=== PATIENT | female | born 1940 | race Caucasian/White ===

== ENCOUNTER 2016-09-19 12:18 | Inpatient (IN) ==
[2016-09-19] MEDS ORDERED: HYDROmorphone 2 MG/1 ML VIAL IV STA (13:22)
[2016-09-19] MEDS ORDERED: ONDANSETRON 4 MG/2 ML VIAL IV STA (13:22)
--- NOTE | 2016-09-19 13:37 | Emergency Department Note ---
Miguel Salgado Gwan, am scribing for, and in the presence of, Aristeo Potter MD 13:27 . Abbey Salgado James D, MD, personally performed the services described in this documentation, ascribed by Jun Rivera in my presence, and it is both accurate and complete 336 . Arrival - Arrival Chief Complaint: Extremity Problem Stated Complaint: leg pain,black toes,has stents ED Nursing Triage Note: PT C/O PAIN TO BLE AND DISCOLORATION TO TOES. PT SENT HERE BY DR SANDERS. Mode of Arrival: Wheelchair Limitations: No Limitations Source: Patient, Family (Daughter), Old Records Reviewed, RN Notes Reviewed - History of Present Illness HPI Narrative: Pt is a 76 y/o female who presents to the ED with bilateral lower extremity discoloration. Patient continued to note that she was sent to ED by Dr. Sanders for further evaluation. Patient confirmed that in March 24, 2016 she had 5 stents put in and that she has cramps in BLE with walking and sitting. Pt is followed by Dr. Staley. Daughter confirmed that her problems with BLE began when she had toe nail removed. Patient confirmed that she use to smoke 1ppd cigarettes and that she had a CAT Scan that resulted in 100% blockage in her right leg. Pt has a PMHx of HTN, cerebrovascular accident, NIDDM, cardiac dysrhythmia and dyslipidemia. No other problems/complaints reported in ED. Onset (ago): day(s) Consistency: constant Severity: moderate Allergies/Adverse Reactions: Allergies Allergy/AdvReac Type Severity Reaction Status Date / Time codeine AdvReac Nausea Verified 09/19/16 12:35 sulfabenzamide AdvReac Nausea Verified 09/19/16 12:35 Home Medications: Home Medications Medication Instructions Recorded Confirmed Type Apixaban [Eliquis] 5 mg PO BID 09/19/16 09/19/16 History Atorvastatin [Lipitor] 20 mg PO DAILY 09/19/16 09/19/16 History Cilostazol 100 mg PO BID 09/19/16 09/19/16 History Diltiazem Cd Cap [Cardizem CD] 120 mg PO DAILY 09/19/16 09/19/16 History Escitalopram [Lexapro] 20 mg PO DAILY 09/19/16 09/19/16 History Liraglutide [Victoza 2-Earl] 1.2 ml SUBCUT DAILY 09/19/16 09/19/16 History Lisinopril/Hydrochlorothiazide 1 each PO BID 09/19/16 09/19/16 History [Lisinopril-Hctz 20-12.5 mg Tab] Metformin HCl 1,000 mg PO BID 09/19/16 09/19/16 History glipiZIDE [Glipizide] 10 mg PO BID 09/19/16 09/19/16 History Review of System - Review of System 12 point system: reviewed and no additional remarkable complaints except as stated - Review of System Constitutional: Absent: chills, fever Head/Ears/Nose/Throat: Absent: earache Respiratory: Absent: cough Cardiovascular: Absent: chest pain Musculoskeletal: Present: as per HPI, other (both feet/toes are discolored) Skin: Present: as per HPI, change in color (both feet/toes). Absent: rash, lesions Medical,Surgical,& Family Hx - Medical History Cardio: History of: Cardiac Dysrhythmia (A-FIB), Hypertension, Cardiovascular Problems (MULTIPLE STENTS TO BLE) Neurology: History of: Cerebrovascular Accident Endocrine: History of: Diabetes Mellitus (NIDDM), Dyslipidemia - Social History Smoking Status: Smoker, status unknown Frequency of Alcohol Use: None Type of Drug Use: None Exam Physical Examination: GENERAL: This is a white female in no apparent distress. VITAL SIGNS: HEENT: Head is normocephalic and atraumatic. Pupils are equally round and reactive to light. Extraocular movement are intact. Oropharynx is benign with moist mucous membranes. NECK: Neck is soft and supple without tenderness. There are no masses. There is no lymphadenopathy. LUNGS: Lungs are clear to auscultation bilaterally. Chest rises symmetrically. There is no chest wall tenderness. CV: Heart is regular rate and rhythm without murmurs, rubs, or gallops. ABDOMEN: Abdomen is soft, non-tender to palpation. There are no abnormal masses palpated. There is no organomegaly. Bowel sounds are present and active. SKIN: Skin is warm and dry. No rash. EXTREMITIES: Left leg is cool to touch and discolored especially overlying the left great toe. Patient does have motor function in the left lower extremity and has sensation to light touch. She has no pulses in the dorsalis pedis posterior tibial popliteal or femoral arteries on the left. She does have a 2+ right femoral artery pulse.. NEUROLOGIC: Awake, alert, and oriented x4. No pulse in femoral artery of left leg. PSYCHIATRIC: Normal affect. Normal mood. Vital Signs: Vital Signs Temperature 100.1 F H 09/19/16 12:30 Pulse Rate 67 09/19/16 12:30 Respiratory Rate 16 09/19/16 12:30 Blood Pressure 120/53 09/19/16 12:30 O2 Sat by Pulse Oximetry 97 09/19/16 12:30 Course - Consultations Consultation #1: Discussed with Dr. Sanders. He will see the patient in the emergency department. Time: 16:01 Results - Labs CBC & BMP: 09/19/16 13:53 09/19/16 13:53 Lab Results: I have reviewed the patients labs - Diagnostic Findings Procedure: CT: image reviewed by me (CT angiogram of aorta with runoff: Newly occluded left iliac artery stent.) Disposition Clinical Impression: Peripheral artery disease, Newly occluded left iliac artery stent Case discussed with: patient Disposition: Still a Patient Condition: Guarded Time of Disposition: 16:01
[2016-09-19 14:00] LABS: Basophils % 0.5 % (0.0-0.8); Eosinophils # 0.1 10*3/uL (0.0-0.87); Eosinophils % 1.1 % (0.00-10.9); Hematocrit 39.1 VOL% (35.7-47.0); Hemoglobin 13.1 GM/DL (12.0-16.0); Immature Granulocytes % 0.2 %; Immature Granulocytes Absolute 0.02 #; Lymphocytes # 2.3 10*3/uL (1.4-4.0); Lymphocytes % 27.1 % (21.3-54.2); Mean Corpuscular HGB Conc 33.5 GM/DL (32-36); Mean Corpuscular Hemoglobin 32 PG (27-34); Mean Corpuscular Volume 94.7 FL (87-102); Mean Platelet Volume 10.4 FL (9.6-12.0); Monocytes # 0.4 10*3/uL (0.11-0.8); Monocytes % 4.9 % (1.7-12.7); Neutrophils # 5.6 10*3/uL (1.4-7.4); Neutrophils % 66.2 % (38.7-73.9); Platelet Count 179 T/CUMM (130-400); Red Blood Count 4.13 MC/CUMM (3.8-5.5); Red Cell Distribution Width 12.5 % (9.3-17.3); White Blood Count 8.5 T/CUMM (4-12)
[2016-09-19] MEDS ORDERED: HYDROmorphone 2 MG/1 ML VIAL ONE (14:01)
[2016-09-19] MEDS ORDERED: ONDANSETRON 4 MG/2 ML VIAL ONE (14:01)
[2016-09-19 14:09] LABS: INR 0.9; PT Patient Result 9.9 SECS; Partial Thromboplastin Time 24.5 SECS (0-40)
--- NOTE | 2016-09-19 14:25 | EKG Report ---
Stationary ECG Study [facility] ER Test Date: 09/19/2016 2:23:47 PM Pat Name: MAKAYLA GONZALEZ Department: Room: Gender: F Supervisor Graphite: : 1940 Requested by: Aristeo Carroll Order Number: [id number] Reading MD: SAYRA COLLINS Intervals [place] Rate: 63 P: 82 IA: 166 QRS: 71 QRSD: 84 T: 71 QT: 424 QTc: 432 Interpretive Statements SINUS RHYTHM LEFT VENTRICULAR HYPERTROPHY AND ST-T CHANGE Electronically Signed On 09-19-16 17:15:08 CDT by SAYRA COLLINS [email or web address]
[2016-09-19 14:32] LABS: Alanine Aminotransferase 16 U/L (13-56); Albumin 3.5 G/DL (3.4-5.0); Alkaline Phosphatase 87 U/L (45-117); Aspartate Amino Transferase 8 U/L (0-37); Bilirubin,Total < 0.39 MG/DL (0.2-1.0); Blood Urea Nitrogen 24 MG/DL (7-18); Calcium 8.6 MG/DL (8.5-10.1); Glucose 413 MG/DL (74-106); Osmolality,Calculated 290.1 MOS/KG (273-304); Sodium 135 MMOL/L (136-145); Total Protein 6.4 G/DL (6.4-8.3)
--- NOTE | 2016-09-19 15:29 | CT Report ---
CT angio abdomen/femoral Indication: Cold, pulseless left lower extremity CT ANGIOGRAM ABDOMINAL AORTA WITH BILATERAL LOWER EXTREMITY RUNOFF DLP: 504 mGy*cm. One or more of the following dose reduction techniques was used: Automated exposure control, adjustment of the mA and/or kV according the patient size, or use of iterative reconstruction techniques. Comparison: 08/15/2016. Technique: Axial thin cut CT images were obtained from the dome of the diaphragm through the feet during the arterial phase of contrast injection. 3-D vascular MIPS reconstructions and multiplanar reformats were evaluated. Omnipaque 350, 120 cc administered. Arteriogram: Diffuse calcified atheromatous disease is again shown. The aorta remains patent with some degree of mural thrombus that is stable from the earlier exam. The right common iliac, external iliac, occluded right SFA including a stent, and reconstituted right popliteal artery with 3 vessel tibioperoneal patency is stable from the earlier exam. A left common iliac artery stent is newly occluded, with reconstitution of the left external iliac artery from internal iliac branches. Left common femoral artery is extremely small in size, 1 to 2 mm diameter similar to previous. Severe multifocal stenoses but otherwise patent left SFA is stable. Left popliteal and tibioperoneal system remains patent. Abdomen: Lung bases remain clear. Calcified granulomata throughout the liver and spleen are stable. No new solid organ lesions shown in the upper abdomen. Pelvis: Urinary bladder is distended. Rectosigmoid colon appears unremarkable. Uterus is absent. Impression: 1. Newly occluded left common iliac artery stent. The remainder of the angiogram with runoff is unchanged when compared to 08/15/2016, including occlusion of the right SFA and diffuse disease of the otherwise patent left SFA. PROCEDURE INTERPRETED AT [facility] DEPARTMENT OF RADIOLOGY Final Report Signed by: Eran Membreno M.D.
[2016-09-19] MEDS ORDERED: GLUCAGON 1 MG VIAL IM PRN (16:42)
[2016-09-19] MEDS ORDERED: ACETAMINOPHEN 325 MG TABLET PO PRN (16:42)
[2016-09-19] MEDS ORDERED: ONDANSETRON 4 MG/2 ML VIAL IV PRN (16:42)
[2016-09-19] MEDS ORDERED: DEXTROSE 50% 25 GM/50 ML VIAL IV PRN (16:42)
--- NOTE | 2016-09-19 16:54 | General Surg History&Physical ---
Assessment and Plan (1) Ischemia of left lower extremity Status: Acute Assessment and plan: Get IV hydration and heparin tonight plan arteriography and attempted re- vascularization of the left iliac arteries tomorrow by Dr. Walter. Current Visit: Yes History of Present Illness Chief complaint: ischemic left leg History of present illness: Ms. Pisano is a 76 year old female Mrs. pisano is a 76-year-old woman who comes to the emergency room with a cool uncomfortable left foot. This is been going on for 2-3 days. Her past medical history is significant for iliac stents of the left common and external iliac arteries and stenting of the right superficial femoral arteries by Dr. Mccarty last year. I saw her in the office approximately a month ago and at that time she had claudication involving her right leg no symptoms on the left. At the time she was continuing to smoke and we discussed treatment options available and elected to try Pletal and exercise and smoking cessation. She has actually continued to smoke a bit of a limited amount but comes to the emergency room today with the onset of the cool pale left foot she reports her left first toe was blue earlier today. CT angiogram is been done and indicates possible near occlusion or complete occlusion of the external iliac just proximal to the external iliac stent a small left common femoral artery but reasonably good runoff on the right side we confirm what was seen on a CTA done last month with an occlusion of the stents in her right superficial femoral artery but reconstitution of the popliteal. I discussed the findings with Ms. Goldstein and her daughter as well as Dr. Membreno him and I think that we are safe to simply start a heparin infusion tonight and plan arteriography and attempted revascularization of the left iliac system tomorrow. I have explained that we may have to consider a left femoral endarterectomy and at a later date consider a right femoral-popliteal bypass. His dad and her daughter understand and agree Home Medications Medication Instructions Recorded Confirmed Type Apixaban [Eliquis] 5 mg PO BID 09/19/16 09/19/16 History Atorvastatin [Lipitor] 20 mg PO DAILY 09/19/16 09/19/16 History Cilostazol 100 mg PO BID 09/19/16 09/19/16 History Diltiazem Cd Cap [Cardizem CD] 120 mg PO DAILY 09/19/16 09/19/16 History Escitalopram [Lexapro] 20 mg PO DAILY 09/19/16 09/19/16 History Liraglutide [Victoza 2-Earl] 1.2 ml SUBCUT DAILY 09/19/16 09/19/16 History Lisinopril/Hydrochlorothiazide 1 each PO BID 09/19/16 09/19/16 History [Lisinopril-Hctz 20-12.5 mg Tab] Metformin HCl 1,000 mg PO BID 09/19/16 09/19/16 History glipiZIDE [Glipizide] 10 mg PO BID 09/19/16 09/19/16 History Allergies Allergy/AdvReac Type Severity Reaction Status Date / Time codeine AdvReac Nausea Verified 09/19/16 12:35 sulfabenzamide AdvReac Nausea Verified 09/19/16 12:35 Medical,Surgical,& Family Hx - Medical History Cardio: History of: Cardiac Dysrhythmia (A-FIB), Hypertension, Cardiovascular Problems (MULTIPLE STENTS TO BLE) Neurology: History of: Cerebrovascular Accident Endocrine: History of: Diabetes Mellitus (NIDDM), Dyslipidemia - Social History Smoking Status: Smoker, status unknown Frequency of Alcohol Use: None Type of Drug Use: None Exam - Constitutional Vitals: Period Temp Pulse Resp BP Sys/Pineda Pulse Ox Last 24 Hr 100.1 F 67 16 120/53 97 General appearance: normal weight, no acute distress - Head Head exam: Present: normal inspection - Eye Eye exam: Present: EOMI Pupils: Present: RENETTA - ENT ENT exam: Present: normal external ear exam Mouth exam: Present: normal voice - Neck Neck exam: Present: normal inspection - Respiratory Respiratory exam: Present: clear to auscultation bilaterally - Cardiovascular Cardiovascular exam: Present: RRR - GI/Abdominal GI/Abdominal exam: Present: soft, other (Testing 123 Ms. Brooks is a 76-year- old woman with known peripheral vascular occlusive disease. She comes to the emergency room today with a rather acute last 2-3 days onset of coolness and discomfort in her left foot. I have seen her in the office in the past month on a follow-up from Dr. Randall Mccarty who had performed iliac angioplasty of the left common and external iliac arteries as well as angioplasty and stenting of the right superficial femoral arteries. At that time she was claudicating and had occlusion of the right superficial femoral stents. She was continued to smoke and I therefore felt to the nonoperative approach was most appropriate. She has had a new onset of the left leg discomfort today and a CT angiogram indicates a high-grade stenosis or occlusion of the left iliac artery just proximal to the external iliac stent. She also has a very small superficial vomiting common femoral artery on the left. In review she does not have acute limb threatening ischemia by therefore recommending admission for heparin infusion and planned arteriography angioplasty or stenting as is possible tomorrow. I have discussed this with Dr. Membreno and he will password on to Dr. Orozco and we will proceed accordingly. It may be that we need to consider a right femoral-popliteal bypass in the left common femoral artery endarterectomy in the coming days as well. I discussed this with Ms. pisano and her daughter they understand and agree. ) - Expanded Left Lower Neuro vascular tendon exam: Present: extremity cold to touch, pallor Gait: Present: not tested/not observed - Back Exam Back exam: Present: normal inspection - Neurological Exam Neurological exam: Present: alert, oriented X3 Speech: Present: normal - Skin Skin exam: Present: dry Results - Labs CBC & BMP: 09/19/16 13:53 09/19/16 13:53
[2016-09-19] MEDS: LACTATED RINGERS 1,000 ML IV SCH (18:42)
[2016-09-19] MEDS: HEPARIN DRIP 25,000 UNITS/500 ML PREMIX IV SCH (19:02)
[2016-09-19] MEDS: oxyCODONE/ACETAMINOPHEN 5-325 MG TABLET PO PRN (20:37)
[2016-09-19] MEDS: glipiZIDE 10 MG TABLET PO SCH (20:37)
[2016-09-19] MEDS: CILOSTAZOL 100 MG TABLET PO SCH (20:37)
[2016-09-19] MEDS: INSULIN REGULAR 100 UNIT/ML SUBCUT SCH (21:14)
[2016-09-20] MEDS ORDERED: HEPARIN 5,000 UNIT/1 ML VIAL IV ONE (03:01)
[2016-09-20] MEDS: LACTATED RINGERS 1,000 ML IV SCH ×3 (06:58→21:44)
[2016-09-20] MEDS: INSULIN REGULAR 100 UNIT/ML SUBCUT SCH ×4 (08:17→22:55)
[2016-09-20] MEDS: ATORVASTATIN 20 MG TABLET PO SCH (08:19)
[2016-09-20] MEDS: glipiZIDE 10 MG TABLET PO SCH ×2 (08:42→22:56)
[2016-09-20] MEDS: ESCITALOPRAM 10 MG TABLET PO SCH (08:42)
[2016-09-20] MEDS: PANTOPRAZOLE 40 MG TABLET PO SCH (08:42)
[2016-09-20] MEDS: CILOSTAZOL 100 MG TABLET PO SCH ×2 (08:42→22:56)
[2016-09-20] MEDS ORDERED: LIRAGLUTIDE SUBCUT SCH (09:00)
[2016-09-20] MEDS ORDERED: DILTIAZEM CD 120 MG CAPSULE PO SCH (09:00)
[2016-09-20] MEDS ORDERED: VICTOZA 0.6 MG/0.1 ML SUBCUT SCH (09:00)
[2016-09-20] MEDS: oxyCODONE/ACETAMINOPHEN 5-325 MG TABLET PO PRN (09:44)
--- NOTE | 2016-09-20 10:35 | Inventional Radiology Consult ---
Assessment and Plan - Time spent with patient Time spent with patient: Greater than 30 minutes (1) Ischemia of left lower extremity Problem details: new onset LLE pain/pallor for approx 3 days Status: Acute Assessment and plan: impvored on Heparin, CTA shows diffuse disease. If the Iliac stents cannot be reopened then surgical options for revascularization will be considered. Dr. Sanders is following Current Visit: Yes (2) PVD (peripheral vascular disease) with claudication Problem details: ongoing for atleast 18 months Status: Chronic Assessment and plan: Dr. Mccarty did angio at [place] in Mar 2016 Current Visit: Yes IR Consult - Data of Consult Patient: new to practice Consult date: 09/20/16 Requesting Physician: Angel Luis Sanders - Consult Narrative Reason for consult: LLE claudication and cold foot with numbness/pain History of present illness: Ld is a 76 year old F With approximately 3 day history of worsening pain in the left lower extremity which has now become cold with numbness/paresthesia. She has significant medical history including proximal vessel atrial fibrillation, hypertension, dyslipidemia, history of stroke, long tobacco abuse history and diabetes. She has seen Dr. Mccarty in the past most recently in March 2016 with multiple stents in the left common and external iliac arteries. The right superficial femoral artery is also been stented in its entirety. CT angiogram while in the emergency department demonstrates complete occlusion of the right SFA stents. There is reasonable reconstitution at the popliteal artery below the stents with three-vessel runoff to the right foot. There is also a three-vessel runoff to the left foot and the popliteal artery is relatively patent. The left superficial femoral artery is markedly diminutive in size. The left common iliac artery stent is occluded. The left external iliac stent appears patent with areas of moderate to severe in stent stenosis and/or occlusion suggested but not well visualized. Overnight heparin drip was initiated and the left leg/foot is much more warm. There is still some pain at the great toe with discoloration noted. The patient has been up and out of bed and to the bathroom without difficulty. No other significant complaints of chest pain or pain in the right lower extremity at this time. No shortness of breath, fever, abdominal pain, GI bleed. Review of systems otherwise negative. - Home Medications and Allergies Home Medications: Home Medications Medication Instructions Recorded Confirmed Type Apixaban [Eliquis] 5 mg PO BID 09/19/16 09/19/16 History Atorvastatin [Lipitor] 20 mg PO DAILY 09/19/16 09/19/16 History Cilostazol 100 mg PO BID 09/19/16 09/19/16 History Diltiazem Cd Cap [Cardizem CD] 120 mg PO DAILY 09/19/16 09/19/16 History Escitalopram [Lexapro] 20 mg PO DAILY 09/19/16 09/19/16 History Liraglutide [Victoza 2-Earl] 1.2 mg SUBCUT DAILY 09/19/16 09/19/16 History Lisinopril/Hydrochlorothiazide 1 each PO BID 09/19/16 09/19/16 History [Lisinopril-Hctz 20-12.5 mg Tab] Metformin HCl 1,000 mg PO BID 09/19/16 09/19/16 History glipiZIDE [Glipizide] 10 mg PO BID 09/19/16 09/19/16 History Allergies/Adverse Reactions: Allergies Allergy/AdvReac Type Severity Reaction Status Date / Time codeine AdvReac Nausea Verified 09/19/16 12:35 sulfabenzamide AdvReac Nausea Verified 09/19/16 12:35 12 point system: reviewed and no additional remarkable complaints except as stated (see HPI) Medical,Surgical,& Family Hx - Medical History Cardio: History of: Cardiac Dysrhythmia (A-FIB), Hypertension, Cardiovascular Problems (MULTIPLE STENTS TO BLE) Neurology: History of: Cerebrovascular Accident (CVA-TIAS) Endocrine: History of: Diabetes Mellitus (NIDDM), Dyslipidemia Rheumatology: History of;: Rheumatoid Arthritis - Surgical History Reproductive Surgeries: Surgical HX of;: Hysterectomy - Family History Family History: Reports;: Family Cancer (MOTHER-BREAST CA), Family Diabetes ( FATHER POSS) - Social History Smoking Status: Former smoker Frequency of Alcohol Use: None Type of Drug Use: None Exam - Labs CBC & BMP: 09/19/16 13:53 09/19/16 13:53 Lab Results: I have reviewed the past 24 hour labs Labs: INR 0.9 09/19/16 13:53 Image Studies: CTA runoff done 09/19/2016-significant findings are discussed in the HPI. - Constitutional Vitals: Period Temp Pulse Resp BP Sys/Pineda Pulse Ox Last 24 Hr 97.2 F-98.9 F 58-65 16-18 119-150/51-71 92-100 General appearance: under weight - Head Head exam: Present: normal inspection - Eye Eye exam: Present: EOMI - Respiratory Respiratory exam: Present: clear to auscultation bilaterally, prolonged expiratory phase (no crackles) - Cardiovascular Cardiovascular exam: Present: regular rate and rhythm Peripheral pulses: 0: Dorsalis Pedis (R), Dorsalis Pedis (L) - GI/Abdominal GI/Abdominal exam: Present: normal bowel sounds - Extremities Exam Extremities exam: Present: full ROM - Expanded Left Lower Knee exam: Present: normal inspection Lower leg exam: Present: normal inspection. Absent: swelling, tenderness, dislocation (warm) Foot/Toe exam: Present: tenderness (grat toe and bottom of foot) Neuro vascular tendon exam: Present: pulse deficit (no palp DP pulse). Absent: foot drop, motor deficit, no vascular compromise Right Lower Lower leg exam: Present: normal inspection Ankle exam: Present: normal inspection Foot/Toe exam: Present: full ROM Neuro vascular tendon exam: Present: pulse deficit (no palp DP pulse). Absent: extremity cold to touch, foot drop, motor deficit, pallor - Neurological Exam Neurological exam: Present: alert, oriented X3 - Psychiatric Psychiatric exam: Present: normal affect, normal mood - Skin Skin exam: Present: normal color, dry
[2016-09-20] MEDS ORDERED: DIAZEPAM 5 MG TABLET PO ONE (10:40)
[2016-09-20] MEDS ORDERED: MIDAZOLAM 10 MG/2 ML VIAL IV ONE (11:00)
[2016-09-20] MEDS ORDERED: fentaNYL 100 MCG/2 ML VIAL IV ONE (11:00)
[2016-09-20] MEDS ORDERED: SODIUM CHLORIDE 0.45% 1,000 ML IV SCH (11:00)
[2016-09-20] MEDS ORDERED: fentaNYL 100 MCG/2 ML VIAL ONE (13:04)
[2016-09-20] MEDS ORDERED: MIDAZOLAM 2 MG/2 ML VIAL ONE ×2 (13:05→15:43)
[2016-09-20] MEDS ORDERED: HEPARIN/NACL 0.9% 2 UNITS/ML 2,000 ML IV ONE (13:12)
[2016-09-20] MEDS ORDERED: HEPARIN 5,000 UNIT/1 ML VIAL ONE (15:11)
[2016-09-20] MEDS ORDERED: KETOROLAC 30 MG/1 ML VIAL IV ONE ×2 (15:49→16:30)
[2016-09-20] MEDS ORDERED: HYDROmorphone 2 MG/1 ML VIAL ONE (16:15)
[2016-09-20] MEDS ORDERED: HYDROmorphone 2 MG/1 ML VIAL IV ONE (16:53)
--- NOTE | 2016-09-20 17:01 | Cardiology Consult Note ---
Ishmael Salgado Vanessa, RN, am scribing for, and in the presence of, Jason Vaughn MD 17:01. Assessment and Plan - Time spent with patient Time spent with patient: Greater than 30 minutes (Due to assessment, planning, documentation, medication review) (1) Ischemia of left lower extremity Problem details: new onset LLE pain/pallor for approx 3 days Status: Acute Assessment and plan: CT angiogram LLE revealed left iliac artery occlusion proximal to previous iliac stent. She is planned for attempted revascularization today. Defer management to vascular surgery. Current Visit: Yes (2) Paroxysmal atrial fibrillation Status: Chronic Assessment and plan: Currently in sinus rhythm. Patient is rate controlled with Bystolic, and she is anticoagulated with Eliquis for stroke prevention. We will discontinue Cardizem as this has caused significant nausea in the past, and we will resume Bystolic. Resume Eliquis when ok from a surgical standpoint. Current Visit: Yes (3) PVD (peripheral vascular disease) with claudication Problem details: ongoing for atleast 18 months Status: Chronic Current Visit : Yes (4) Hypertension Status: Chronic Assessment and plan: Overall, BP is well controlled at this time. Continue current medication regimen. Current Visit: Yes (5) Diabetes Status: Chronic Assessment and plan: Continue current plan of care. Current Visit: Yes (6) Dyslipidemia Status: Chronic Assessment and plan: Continue statin. Current Visit: Yes (7) History of CVA (cerebrovascular accident) Status: Chronic Current Visit: No (8) Peripheral artery disease Status: Acute Current Visit: Yes History of Present Illness - Data of Consult Patient: known to practice within the last 3 years Consult date: 09/20/16 Requesting Physician: Angel Luis Sanders Primary care physician: Boogie Marcelino - Consult Narrative Reason for consult: cardiac medical management History of present illness: PRIMARY SALES PERFORMANCE ANALYST: DR. NATI HOOVER PCP: DR. MARCELINO Ms. Jaffe is a 76 year old white female routinely followed by Dr. Nati Hoover for cardiology. Past medical history includes hypertension, paroxysmal atrial fibrillation, COPD, diabetes, dyslipidemia, peripheral vascular disease, smoker , and CVA. She has had previous stenting of the left common and external iliac artery and right SFA per Dr. Mccarty last year. She was seen recently by Dr. whittaker in the office for claudication of the right leg with no symptoms of her left leg. She presented to the emergency room on 09/19/16 complaining of her left foot being cold and noticing that left first toe was discolored earlier that morning. She had a CTA and indicated near or complete occlusion of the external iliac just prior to previous external iliac stent. Also seen was a small left common femoral artery with fair runoff on the right with RFA stent occlusion and reconstitution at the popliteal vessel. She has been admitted to vascular surgical services. Cardiology has been consulted for medical management. She has been started on IV heparin infusion, and is planned for arteriography with attempted revascularization of the left iliac today. Patient has been anticoagulated with Eliquis for stroke prevention. She is rate controlled with Cardizem and Bystolic. She is currently in a sinus rhythm with controlled ventricular response, pulse rate 60s. Most recent Cardiolite stress test was February 09, 2016, and this was clinically and electrically negative. She has not experienced any chest pain, dyspnea, orthopnea, PND, palpitations, or presyncope. Labs reviewed and overall unremarkable. Current Medications Acetaminophen (Tylenol Tab) 650 mg PO Q6H PRN PRN Reason: Pain Mild (1-3) and/or Fever Atorvastatin Calcium (Lipitor) 20 mg PO DAILY [facility] Last Admin: 09/20/16 08:19 Dose: 20 mg Cilostazol (Pletal) 100 mg PO BID [facility] Last Admin: 09/19/16 20:37 Dose: 100 mg Dextrose/Water (D50) 25 gm IV PRN PRN PRN Reason: Hypoglycemia with IV access Diltiazem HCl (Cardizem Cd) 120 mg PO DAILY [facility] Last Admin: 09/20/16 08:20 Dose: 120 mg Escitalopram Oxalate (Lexapro) 20 mg PO DAILY [facility] Glipizide (Glucotrol) 10 mg PO BID [facility] Last Admin: 09/19/16 20:37 Dose: 10 mg Glucagon () 1 mg IM PRN PRN PRN Reason: Hypoglycemia w/o IV access Lactated Ringer's (Lr) 1,000 mls @ 125 mls/hr IV .Q8H [facility] Last Admin: 09/20/16 06:58 Dose: 125 mls/hr Heparin Sodium/Dextrose () 25,000 units in 500 mls @ 16.329 mls/hr IV TITRATE MIKKI; 15 UNITS/KG/HR PRN Reason: Protocol Last Titration: 09/20/16 03:09 Dose: 16.81 units/kg/hr, 18.3 mls/hr Insulin Human Regular (Humulin R) 0 unit SUBCUT ACHS MIKKI PRN Reason: Protocol Last Admin: 09/20/16 08:17 Dose: 4 unit Victoza 0.6mg/0.1ml 1.2 each SUBCUT DAILY [facility] Ondansetron HCl (Zofran Inj) 4 mg IV Q6H PRN PRN Reason: Nausea/Vomiting Oxycodone/Acetaminophen (Percocet 5-325) 1 tablet PO Q6H PRN PRN Reason: Pain Moderate (4-7) Last Admin: 09/19/16 20:37 Dose: 1 tablet Pantoprazole Sodium (Protonix Tab) 40 mg PO DAILY [facility] CC: Angel Luis Sanders MD - Home Medications and Allergies Home Medications: Home Medications Medication Instructions Recorded Confirmed Type Apixaban [Eliquis] 5 mg PO BID 09/19/16 09/19/16 History Atorvastatin [Lipitor] 20 mg PO DAILY 09/19/16 09/19/16 History Cilostazol 100 mg PO BID 09/19/16 09/19/16 History Diltiazem Cd Cap [Cardizem CD] 120 mg PO DAILY 09/19/16 09/19/16 History Escitalopram [Lexapro] 20 mg PO DAILY 09/19/16 09/19/16 History Liraglutide [Victoza 2-Earl] 1.2 mg SUBCUT DAILY 09/19/16 09/19/16 History Lisinopril/Hydrochlorothiazide 1 each PO BID 09/19/16 09/19/16 History [Lisinopril-Hctz 20-12.5 mg Tab] Metformin HCl 1,000 mg PO BID 09/19/16 09/19/16 History glipiZIDE [Glipizide] 10 mg PO BID 09/19/16 09/19/16 History Allergies/Adverse Reactions: Allergies Allergy/AdvReac Type Severity Reaction Status Date / Time codeine AdvReac Nausea Verified 09/19/16 12:35 sulfabenzamide AdvReac Nausea Verified 09/19/16 12:35 - Constitutional Constitutional: Absent: chills, daytime sleepiness, excessive sweating, fatigue , night sweats, weakness, weight gain, weight loss - EENT Eyes: Absent: blurry vision, loss of vision Ears: Absent: decreased hearing Nose, mouth and throat: Absent: dysphagia, epistaxis, nasal congestion, neck pain, sinus pressure, throat swelling, tongue swelling - Cardiovascular Cardiovascular: Present: claudication. Absent: chest pain at rest, chest pain with activity, diaphoresis, dyspnea, dyspnea on exertion, edema, radiating jaw, neck or arm pain, lightheadedness, orthopnea, palpitations, PND - Respiratory Respiratory: Absent: cough, hemoptysis, dyspnea on exertion, wheezing, pain on inspiration, change in phlegm color - Gastrointestinal Gastrointestinal: Absent: abdominal pain, constipation, diarrhea, dysphagia, hematemesis, hematochezia, melena, nausea, vomiting - Genitourinary Genitourinary: Absent: dysuria, flank pain, hematuria - Musculoskeletal Musculoskeletal: Absent: arthralgias - Neurological Neurological: Absent: abnormal speech, confusion, dizziness, syncope, tremor(s) - Psychiatric Psychiatric: Absent: anxiety, confusion, depression - Endocrine Endocrine: Absent: cold intolerance, heat intolerance - Hematologic/Lymphatic Hematologic/Lymphatic: Present: easy bruising. Absent: easy bleeding Medical,Surgical,& Family Hx - Medical History Cardio: History of: Cardiac Dysrhythmia (A-FIB), Hypertension, PVD (Previous left iliac stenting and RFA stenting; prev followed by Dr. Mccarty) No history of: Valvular Heart Disease Neurology: History of: Cerebrovascular Accident (CVA-TIAS) No history of: TIA Endocrine: History of: Diabetes Mellitus (NIDDM), Dyslipidemia Rheumatology: History of;: Rheumatoid Arthritis Respiratory: History of: COPD No history of: Obstructive Sleep Apnea, Pulmonary Hypertension Gastrointestinal: History of: GERD No history of: Gastrointestinal Bleed, Hepatitis Other: History of: Cancer (skin) - Surgical History Cardiac Surgeries: Patient Denies: Cardiac Catheterization, Cardiac Surgery HEENT Surgeries: Surgical HX of: Eye Surgery, Tonsilectomy & Adenoidectomy Patient denies: Carotid Endarterectomy Abdominal Surgeries: Surgical HX of: Appendectomy Reproductive Surgeries: Surgical HX of;: Breast Surgery (total mastectomy), Hysterectomy - Family History Family History: Reports;: Family Cancer (MOTHER-BREAST CA), Family Diabetes ( FATHER POSS) - Social History Smoking Status: Former smoker Frequency of Alcohol Use: None Type of Drug Use: None Physical Examination Vital Signs Temp Pulse Resp BP Pulse Ox 100.1 F H 67 16 120/53 97 09/19/16 12:30 09/19/16 12:30 09/19/16 12:30 09/19/16 12:30 09/19/16 12:30 General: Present: No Apparent Distress HEENT: Present: PERRL, Normocephaly, Mucus Membranes Moist Neck: Present: Midline Trachea, No JVD/HJR, No Masses, No Bruit Cardiac: Present: Reg Rate and Rhythm, No Murmur. Absent: Tachycardia, Bradycardia Lungs: Present: Clear Ascult./Percussion, No Wheeze, Rales, Rhonchi Neuro: Present: Grossly Intact. Absent: Weakness, Resting Tremor Abdomen: Present: Soft, Active Bowel Sounds. Absent: Ascites, Tender, Firm Skin: Present: Clear. Absent: Rash, Suspicious Lesions Extremities: Present: No Clubbing, No Cyanosis, No Edema, Normal Upper Extr. Pulses (2+ bilaterally), Normal Lower Extr. Pulses (LLE pulse unobtainable with doppler. RLE faint PT and DP), Cool (BLE's cool to touch with LLE slightly cooler than RLE) Result/EKG - Labs CBC & BMP: 09/19/16 13:53 09/19/16 13:53 Lab Results: I have reviewed the past 24 hour labs Labs: Laboratory Results - last 24 hr 09/19/16 09/19/16 09/19/16 18:22 19:37 19:56 Circ Anticoag PTT 27.1 POC Glucose 172 H 235 H 09/20/16 09/20/16 02:06 06:46 Circ Anticoag PTT 35.2 D POC Glucose 241 H - EKG EKG results: interpreted by me, no acute changes EKG shows: sinus rhythm I, Jason Vaughn MD, personally performed the services described in this documentation, ascribed by Jessica Quiñones RN in my presence, and it is both accurate and complete .
[2016-09-20] MEDS ORDERED: HYDROmorphone 2 MG/1 ML VIAL IV PRN (17:21)
--- NOTE | 2016-09-20 17:22 | Event Note ---
Mrs. Brooks has undergone successful revascularization of her left iliac stents and has good flow to below the knee. We will maintain her on a moderate on the heparin overnight add Dilaudid for pain and she became quite uncomfortable during the procedure. We will see how she does tomorrow with ambulation and we can determine whether she wishes or needs to proceed with a femoral-popliteal bypassing on the other leg during this hospitalization
[2016-09-20] MEDS ORDERED: hydrALAZINE 20 MG/1 ML VIAL IV ONE (17:27)
[2016-09-20] MEDS ORDERED: hydrALAZINE 20 MG/1 ML VIAL ONE (17:32)
--- NOTE | 2016-09-20 18:05 | Post Interventional Procedure ---
Pre-op diagnosis: severe LLE claudication, cold foot Post-op diagnosis: same Procedure: pelvic angiogram with recannulzation of occluded left common iliac artrey with angioplasty and angiojet thrombectomy Contrast: 125 visi 320 Flouroscopy: 42 min Radiologist: Wolfgang Walter Compliance Testing Analyst: [place] Anesthesia: conscious sedation Medications: 1 mg intravenous Dilaudid. 4 mg intravenous Versed. 100 mg intravenous fentanyl. 30 mg intravenous Toradol. 20 mg Intravenous Hydralazine Total Sedation Time: 145 min Specimens: none sent Estimated blood loss: minimal (15 mL) Complications: other (small left arm hematoma) Condition: stable Description/Findings: Please see formal dictation for procedural findings. Assessment and Plan - Time spent with patient Time spent with patient: Greater than 30 minutes (1) Ischemia of left lower extremity Problem details: new onset LLE pain/pallor for approx 3 days Status: Acute Assessment and plan: impvored on Heparin, CTA shows diffuse disease. If the Iliac stents cannot be reopened then surgical options for revascularization will be considered. Dr. Sanders is following Current Visit: Yes (2) PVD (peripheral vascular disease) with claudication Problem details: ongoing for atleast 18 months Status: Chronic Assessment and plan: Dr. Mccarty did angio at [place] in Mar 2016 Current Visit: Yes
--- NOTE | 2016-09-20 18:24 | Interventional Radiology Rpt ---
IR angio extremity LT, IR arterial thrombectomy, IR riverboat captain iliac, US guide vascular access Clinical Information: 76-year-old female with long standing tobacco abuse history, hypertension, diabetes and peripheral vascular disease with multiple interventions primarily by Randall Mccarty at [facility] within the last 12 months for claudication and worsening lower extremity pain. Preprocedural creatinine = 1.2 bilateral claudication with minimal activity. Severe worsening of left lung surgery claudication with cold pulseless foot at admission yesterday. Preprocedural ABIs demonstrate severe disease bilaterally. No stress EKG or nuclear medicine stress scans within the last 2 years are noted. Physician: Dr. Walter Procedure: The patient was advised of the benefits, risks, and alternatives of the procedure and informed consent was obtained. A time out was performed with verification of the patient's name, MRN, site of procedure, and type of procedure to be performed. The patient was positioned in the supine position on the angiographic table. The site was prepped and draped in the usual sterile fashion. The patient remained on moderate dose heparin intravenously throughout the procedure. Moderate sedation was performed by the physician including the presence of an independent trained observer that assisted in monitoring the patient's level of consciousness and physiological status. Following the administration of a total of 4 mg intravenous Versed, 100 mcg intravenous fentanyl and 1 mg intravenous Dilaudid as well as 30 mg intravenous Toradol. The physician spent 145 minutes of continuous [id number] time with the patient. A pulp operator radiograph reveals no relevant abnormality. 2% lidocaine was used for local anesthesia. The left brachial artery was accessed with a microintroducer set. A short 0.018" wire was inserted and the needle was exchanged for a 4 Fr microintroducer sheath. Initially, a short 6 Fr sheath was placed over the wire. The guidewire and dilator were removed and a 0.035" Glidewire was advanced into the abdominal aorta. A 4 Welsh Erich catheter was inserted through the sheath and placed into the lower abdominal aorta. Aortogram demonstrates complete occlusion of the left common iliac artery with indwelling stent noted in place. There is minimal delayed filling of the external iliac and common femoral vessels. There is complete occlusion in the left common iliac artery with TASC grade of C. With significant effort, the indwelling occluded left common iliac stent was successfully recannulated. Brief angioplasty was performed with a 7 mm balloon. Subsequently, the AngioJet was passed into the common femoral artery and retracted with suction thrombectomy performed 2 times. Subsequently, the distal external iliac artery and common femoral artery and additional indwelling external iliac artery stent were angioplastied with 6 x 4 [place] balloon. Follow-up arteriogram demonstrates significant improvement in straight line flow into the left common femoral artery. Brief angiogram over the left hip demonstrates widely patent superficial and deep femoral arteries with brisk runoff. Subsequently, a follow-up runoff arteriogram demonstrates widely patent superficial and deep femoral arteries. The popliteal artery is also widely patent. Below the knee, there is limited visualization of patent vasculature. The anterior tibial artery is patent at least to the mid fulton. There is also reconstitution of the small branch vessels at the distal mid fulton and into the proximal ankle. Limited visualization of the pedal vessels. Repeat angiogram via the sheath at the distal aorta demonstrates residual/recurrent moderate to severe stenosis at the proximal common iliac artery. This was again treated with angioplasty with a 6 mm balloon. Follow-up angiogram demonstrates widely patent flow into the left common, external and common femoral arteries. Total length of the occluded vessel is: 5 cm Total length of treatment performed: 12 cm All sheaths and wires were removed without difficulty. Pressure was held at the left brachial artery puncture site. A moderate size hematoma developed. Again, pressure was held at the puncture site for 30 minutes. At that point, there is no additional bleeding or worsening of the hematoma. This point, the safeguard adhesive pressure dressing bandage was applied to the puncture site and insufflated with 25 mL air. There appeared to be good near occlusive pressure at the puncture site with palpable radial pulse noted distally. The patient had no pain or paresthesia in the left and at the conclusion of the procedure. The patient tolerated the procedure well and was returned to inpatient room in stable condition. EBL: < 5 mL. Complications: None. Fluoroscopy time: 42 minutes Total number of images for this study: 571 Conclusion: 1. Successful angioplasty and AngioJet thrombectomy with recanalization of the occluded left common iliac artery stent. Marked improvement in straight line flow to the left superficial femoral and popliteal vessels. 2. Limited runoff to the left foot, possibly due to small distal emboli. The patient will remain on heparin overnight and we will monitor clinically. If there is further intervention required, this can be performed as needed. PROCEDURE INTERPRETED AT [facility] DEPARTMENT OF RADIOLOGY Final Report Signed by: Wolfgang Walter
[2016-09-20 18:34] LABS: Apearance,Urine CLEAR (Clear); Bilirubin,Urine Negative (Negative); Blood, Urine Negative (Negative); Glucose,Urine (UA) 50 mg/dL (Negative); Ketones,Urine 5 mg/dL (Negative); Mucus,Urine Occasional /LPF (Occasional); Nitrite,Urine Negative (Negative); Protein,Urine Negative; RBC,Urine 2 /HPF (0-4); Squamous Epithelial Cell,Urine Occasional /HPF (0-10); Urine Color Straw (Yellow); Urine Specific Gravity 1.055 (1.001-1.035); Urine Urobilinogen < 2.0 EU/DL (0.2-1.0); WBC,Urine 1 /HPF (0-6)
[2016-09-20 19:21] LABS: PT Patient Result 10.5 SECS
[2016-09-20 19:22] LABS: Partial Thromboplastin Time 48.6 SECS (0-40)
[2016-09-20] MEDS: HEPARIN DRIP 25,000 UNITS/500 ML PREMIX IV SCH (19:39)
[2016-09-21] MEDS: LACTATED RINGERS 1,000 ML IV SCH ×3 (01:00→10:35)
[2016-09-21] MEDS: oxyCODONE/ACETAMINOPHEN 5-325 MG TABLET PO PRN ×2 (03:44→11:49)
[2016-09-21] MEDS: HEPARIN DRIP 25,000 UNITS/500 ML PREMIX IV SCH (04:18)
[2016-09-21] MEDS: INSULIN REGULAR 100 UNIT/ML SUBCUT SCH ×4 (08:39→21:50)
--- NOTE | 2016-09-21 09:07 | Event Note ---
Ms. Brooks reports her foot feeling well other than the first toe which is cyanotic and somewhat tender but not with impending gangrene. She states that this toe actually became blue and cyanotic multiple times at home. Her leg overall appears to be much better perfused although I do not palpate pedal pulses. I do not palpate pedal pulses in the right foot either though. This point her left arm looks reasonably good I am going to stop the heparin infusion and IV fluids take out the Lora will ask in physical therapy to help her with a walker and see if she can ambulate I am going to resume 81 mg aspirin and her Eliquis today possibly we will let her be discharged this evening. She states that at this point she does not feel she wishes to proceed with a right femoral-popliteal bypass which is a pending possibility
[2016-09-21] MEDS: PANTOPRAZOLE 40 MG TABLET PO SCH (10:25)
[2016-09-21] MEDS: ATORVASTATIN 20 MG TABLET PO SCH (10:25)
[2016-09-21] MEDS: NEBIVOLOL 10 MG TABLET PO SCH (10:25)
[2016-09-21] MEDS: ESCITALOPRAM 10 MG TABLET PO SCH (10:26)
[2016-09-21] MEDS: glipiZIDE 10 MG TABLET PO SCH ×2 (10:26→21:50)
[2016-09-21] MEDS: CILOSTAZOL 100 MG TABLET PO SCH ×2 (10:26→21:50)
[2016-09-21] MEDS: ASPIRIN EC 81 MG TABLET PO SCH (10:28)
[2016-09-21] MEDS: APIXABAN 5 MG TABLET PO SCH ×2 (10:28→21:50)
--- NOTE | 2016-09-21 13:12 | Event Note ---
Study is doing reasonably well but was quite uncomfortable standing and attempting to walk even with a walker. I will have her stay at least overnight and make certain that she is able to ambulate when discharge.
--- NOTE | 2016-09-21 13:20 | Event Note ---
Mrs. Jaffe had a reasonably good night with rest. Moderate bruising is noted at the left brachial puncture site due to the small hematoma. This should resolve and 7-10 days. There is no suggestion of pseudoaneurysm or any other consultation related to brachial access. The puncture site does appear well- healed and a standard dressing was placed for now. She does not have any significant pain in the arm and arm/hand function is otherwise normal. Radial pulse is bounding 2+. Patient remains slightly hypertensive. Regarding the left leg, the left lower leg appears well perfused and is warm at least to the level of the distal fulton/ankle. However, the great toe remains discolored/cold to the touch. At the time of my interview, she had not been out of bed. The patient does have some pain at the ball of the foot with pressure but sensation and motor function are normal (reportedly improved). The dorsalis pedis pulse could not be palpated. There are no complaints of right lower extremity pain. If there is continued difficulty with ambulation due to pain, consideration for repeat arteriogram with tibioperoneal thrombectomy/thrombolysis could be considered. Patient's kidney function remains normal with good urine output. No other significant complaints overnight.
--- NOTE | 2016-09-21 17:26 | Cardiology Progress Note ---
Ishmael Salgado Vanessa, RN, am scribing for, and in the presence of, Jason Vaughn MD 17:25. 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 She is status post successful revascularization of left iliac artery yesterday. Defer primary management to vascular surgery. Current Visit: Yes (2) Paroxysmal atrial fibrillation Status: Chronic Assessment and plan: Currently in sinus rhythm. Patient is rate controlled with Bystolic, and she is anticoagulated with Eliquis for stroke prevention. Eliquis and aspirin have been resumed this morning. Current Visit: Yes (3) PVD (peripheral vascular disease) with claudication Problem details: ongoing for atleast 18 months Status: Chronic Current Visit : Yes (4) Hypertension Status: Chronic Assessment and plan: Overall, BP is well controlled at this time. Continue current medication regimen. Current Visit: Yes (5) Diabetes Status: Chronic Assessment and plan: Continue current plan of care. Current Visit: Yes (6) Dyslipidemia Status: Chronic Assessment and plan: Continue statin. Current Visit: Yes (7) History of CVA (cerebrovascular accident) Status: Chronic Current Visit: No (8) Peripheral artery disease Status: Acute Current Visit: Yes Cardiology - PN: Subj Interval history: PRIMARY SUSTAINABILITY MANAGER: DR. EARNEST HOOVER PCP: DR. MARCELINO Ms. Jaffe is status post successful thrombectomy and angioplasty of occluded left common iliac artery yesterday. She is awake and alert this morning, she appears comfortable. Denies chest pain, dyspnea, palpitation, dizziness, or other cardiac complaint. Patient will be getting up and ambulate with physical therapy assist today. Blood pressure has been stable overnight and is averaging 130/60. Pulse rate is 60s and regular. Patient is for possible discharge home later this evening. Current Medications Acetaminophen (Tylenol Tab) 650 mg PO Q6H PRN PRN Reason: Pain Mild (1-3) and/or Fever Apixaban (Eliquis) 5 mg PO BID [facility] Aspirin () 81 mg PO DAILY [facility] Atorvastatin Calcium (Lipitor) 20 mg PO DAILY [facility] Last Admin: 09/20/16 08:19 Dose: 20 mg Cilostazol (Pletal) 100 mg PO BID [facility] Last Admin: 09/20/16 22:56 Dose: 100 mg Dextrose/Water (D50) 25 gm IV PRN PRN PRN Reason: Hypoglycemia with IV access Escitalopram Oxalate (Lexapro) 20 mg PO DAILY [facility] Last Admin: 09/20/16 08:42 Dose: Not Given Glipizide (Glucotrol) 10 mg PO BID [facility] Last Admin: 09/20/16 22:56 Dose: 10 mg Glucagon () 1 mg IM PRN PRN PRN Reason: Hypoglycemia w/o IV access Hydromorphone HCl (Dilaudid Inj) 0.5 mg IV Q2H PRN PRN Reason: Pain Severe (8-10) Last Admin: 09/20/16 18:48 Dose: 0.5 mg Insulin Human Regular (Humulin R) 0 unit SUBCUT ACHS [facility] PRN Reason: Protocol Last Admin: 09/21/16 08:39 Dose: Not Given Nebivolol (Bystolic) 10 mg PO DAILY [facility] Victoza 0.6mg/0.1ml 1.2 each SUBCUT DAILY [facility] Ondansetron HCl (Zofran Inj) 4 mg IV Q6H PRN PRN Reason: Nausea/Vomiting Oxycodone/Acetaminophen (Percocet 5-325) 1 tablet PO Q6H PRN PRN Reason: Pain Moderate (4-7) Last Admin: 09/21/16 03:44 Dose: 1 tablet Pantoprazole Sodium (Protonix Tab) 40 mg PO DAILY [facility] Last Admin: 09/20/16 08:42 Dose: Not Given Exam (Progress Note) - Constitutional Vitals: Period Temp Pulse Resp BP Sys/Pineda Pulse Ox Last 24 Hr 97.6 F-98.5 F 54-85 15-20 117-243/45-110 90-96 Exam: General: Present: No Apparent Distress HEENT: Present: PERRL, Normocephaly, Mucus Membranes Moist Neck: Present: Midline Trachea, No JVD/HJR, No Masses, No Bruit Cardiac: Present: Reg Rate and Rhythm, No Murmur. Absent: Tachycardia, Bradycardia Lungs: Present: Clear Ascult./Percussion, No Wheeze, Rales, Rhonchi Neuro: Present: Grossly Intact. Absent: Weakness, Resting Tremor Abdomen: Present: Soft, Active Bowel Sounds. Absent: Ascites, Tender, Firm Skin: Present: Clear. Absent: Rash, Suspicious Lesions Extremities: Present: No Clubbing, No Cyanosis, No Edema, Normal Upper Extr. Pulses (2+ bilaterally), Normal Lower Extr. Pulses (left lower extremity with palpable dorsalis pedis pulse this morning. Left great toe discolored. RLE faint PT and DP), Cool (BLE's cool to touch with LLE slightly cooler than RLE). Other: Left antecubital area with moderate amount of bruising and semisoft hematoma acquired during IR procedure yesterday. Distal pulses are present. Result/EKG - Labs CBC & BMP: 09/19/16 13:53 09/19/16 13:53 Lab Results: I have reviewed the past 24 hour labs Labs: Laboratory Results - last 24 hr 09/20/16 09/20/16 09/20/16 09:24 11:14 17:00 INR PT Patient/Control Mix Circ Anticoag PTT 46.2 H D POC Glucose 112 H Urine Color Straw Urine Appearance Clear Urine pH 6.0 Ur Specific [place] 1.055 H Urine Protein Negative Urine Glucose (UA) 50 Urine Ketones 5 Urine Blood Negative Urine Nitrate Negative Urine Bilirubin Negative Urine Urobilinogen < 2.0 H Urine Leukocytes Negative Urine RBC 2 Urine WBC 1 Ur Squamous Epith Cells Occasional Urine Mucus Occasional Ur Culture Indicated? Not indicated 09/20/16 09/20/16 09/21/16 18:46 19:52 07:01 INR 1.0 PT Patient/Control Mix 10.5 Circ Anticoag PTT 48.6 H POC Glucose 302 H 138 H Urine Color Urine Appearance Urine pH Ur Specific [place] Urine Protein Urine Glucose (UA) Urine Ketones Urine Blood Urine Nitrate Urine Bilirubin Urine Urobilinogen Urine Leukocytes Urine RBC Urine WBC Ur Squamous Epith Cells Urine Mucus Ur Culture Indicated? - EKG EKG results: interpreted by me, no acute changes EKG shows: sinus rhythm Quality Measures - VTE Contraindication to Pharmacological VTE Prophylaxis: Already on Theraputic Agent , No Prophylaxis Needed Roderick Salgado Michael, MD, personally performed the services described in this documentation, ascribed by Jessica Quiñones RN in my presence, and it is both accurate and complete 725 .
[2016-09-22 07:48] VITALS: BP 128/78
--- NOTE | 2016-09-22 08:49 | Discharge Summary ---
Hospital Course - Hospital Course Hospital Course: Adrianne Brooks is a 76-year-old woman with previous history of stenting of her right superficial femoral artery and left iliac artery she had developed occlusion of the right superficial femoral arterial stents and with modification but no limb threatening ischemia. She was admitted at this time with the occlusion of her left common iliac stent underwent interventional thrombectomy with improved flow into the lower leg. She had previously had and continues to have cyanosis and tissue damage involving the left great toe but the remainder of the foot looks good. I believe I can feel a very weak dorsalis pedis pulse today in the foot. At this point time she is able to ambulate in the room and I think is safe to be discharged home we will continue aspirin and Eliquis and she will resume metformin and Victoza and glipizide for diabetes. I have reviewed the necessity of cigarette cessation with her again and her daughter present her daughter is quite aware is an RN that has actually worked in surgery with Dr. Lopez in the past. I will plan to see her in the office in 2 weeks. Diagnosis - Discharge Diagnosis (1) Ischemia of left lower extremity Status: Acute Discharge Plan - Discharge Data Disposition: Disch To Home/Self Care Condition at Discharge: Stable Discharge Diet: diabetic diet Activity: resume usual activities as tolerated Hygiene: may shower Weight Bearing at Discharge: full weight bearing Driving: not until seen by doctor Contact your physician if you experience:: fever over 101, Redness or swelling, Bleeding - Discharge Medications New Aspirin EC Tab 81 mg PO DAILY #90 tablet Nebivolol [Bystolic] 10 mg PO DAILY tablet Continue Escitalopram [Lexapro] 20 mg PO DAILY Cilostazol 100 mg PO BID Apixaban [Eliquis] 5 mg PO BID glipiZIDE [Glipizide] 10 mg PO BID Metformin HCl 1,000 mg PO BID Diltiazem Cd Cap [Cardizem CD] 120 mg PO DAILY Liraglutide [Victoza 2-Earl] 1.2 mg SUBCUT DAILY Atorvastatin [Lipitor] 20 mg PO DAILY Lisinopril/Hydrochlorothiazide [Lisinopril-Hctz 20-12.5 mg Tab] 1 each PO BID - Follow Up or Referral Follow Up: Angel Luis Sanders MD [Physician] - 2 Weeks - Forms/Instructions Exam - Constitutional Vitals: Period Temp Pulse Resp BP Sys/Pineda Pulse Ox Last 24 Hr 97.9 F-100.0 F 53-88 18-20 104-183/44-78 93-98 Discharge Results Labs on day of discharge: Labs from last 24 hours 09/22/16 09/21/16 09/21/16 07:07 20:05 16:01 POC Glucose 156 H 276 H 165 H 09/21/16 11:11 POC Glucose 317 H DS: Provider Date of admission: 09/19/16 16:42 Primary care physician: Rylee Ferrer MD Attending physician on admission: Angel Luis Sanders MD Consults: 09/19/16 17:18 Consult to Physician [CONS] Routine Comment: patient known to you Consulting Provider: Nati Staley Consulting Provider Notified: Yes When should Consulting Provider be notified: Now Person Notified: joy called Date Notified: 09/20/16 Time Notified: 07:51 09/20/16 07:42 Consult to Physician [CONS] Routine Comment: Consulting Provider: Consulting Provider Notified: Yes When should Consulting Provider be notified: Now Consult to Specialist Group: Interventional Radiology Person Notified: divina called Date Notified: 09/20/16 Time Notified: 08:13 09/21/16 09:02 Consult to Physical Therapy [CONS] Routine Reason for Physical Therapy: Ambulation Discharging clinician: Angel Luis Sanders MD
[2016-09-22] MEDS: INSULIN REGULAR 100 UNIT/ML SUBCUT SCH (09:14)
[2016-09-22] MEDS: glipiZIDE 10 MG TABLET PO SCH (09:18)
[2016-09-22] MEDS: CILOSTAZOL 100 MG TABLET PO SCH (09:18)
[2016-09-22] MEDS: ESCITALOPRAM 10 MG TABLET PO SCH (09:18)
[2016-09-22] MEDS: ATORVASTATIN 20 MG TABLET PO SCH (09:18)
[2016-09-22] MEDS: PANTOPRAZOLE 40 MG TABLET PO SCH (09:18)
[2016-09-22] MEDS: NEBIVOLOL 10 MG TABLET PO SCH (09:18)
[2016-09-22] MEDS: ASPIRIN EC 81 MG TABLET PO SCH (09:18)
[2016-09-22] MEDS: APIXABAN 5 MG TABLET PO SCH (09:18)
== END 2016-09-22 11:20 | disposition home or self-care (01) | DRG 254 ==
LOC: N.ED 12:18 → N.EDINP 16:42 → N.3E 18:10
PROVIDERS: ADMIT Surgery; ATTEND Surgery

== ENCOUNTER 2017-09-24 10:57 | Inpatient (IN) ==
[2017-09-24] MEDS ORDERED: MAGNESIUM SULF RIDER 4 GM in PREMIX 1 EACH IV PRN (16:10)
[2017-09-24] MEDS ORDERED: LACTULOSE 20 GM/30 ML UDCUP PO PRN (16:10)
[2017-09-24] MEDS ORDERED: GLUCAGON 1 MG VIAL IM PRN (16:10)
[2017-09-24] MEDS ORDERED: ONDANSETRON 4 MG/2 ML VIAL IV PRN (16:10)
[2017-09-24] MEDS ORDERED: ZALEPLON 5 MG CAPSULE PO PRN (16:10)
[2017-09-24] MEDS ORDERED: MAGNESIUM SULF RIDER 2 GM in PREMIX 1 EACH IV PRN (16:10)
[2017-09-24] MEDS ORDERED: DEXTROSE 50% 25 GM/50 ML VIAL IV PRN (16:10)
[2017-09-24] MEDS ORDERED: diphenhydrAMINE CAP 25 MG CAPSULE PO PRN (16:10)
[2017-09-24] MEDS ORDERED: ACETAMINOPHEN 325 MG TABLET PO PRN (16:10)
[2017-09-24] MEDS: INSULIN REGULAR 100 UNIT/ML SUBCUT SCH ×2 (17:52→21:02)
[2017-09-24] MEDS ORDERED: traMADol 50 MG TABLET PO PRN (17:56)
[2017-09-24] MEDS ORDERED: NITROGLYCERIN SL 0.4 MG TABLET SL PRN (20:26)
[2017-09-24] MEDS: MORPHINE 4 MG/1 ML VIAL IV PRN (21:01)
[2017-09-24] MEDS: CILOSTAZOL 100 MG TABLET PO SCH (21:01)
[2017-09-24] MEDS: PREGABALIN 50 MG CAPSULE PO SCH (21:01)
[2017-09-24] MEDS: SODIUM CHLORIDE 0.45% 1,000 ML IV SCH (21:02)
[2017-09-24] MEDS: NITROGLYCERIN 2% OINT 1 INCH/GM PACK TOP SCH (23:23)
[2017-09-25] MEDS: SODIUM CHLORIDE 0.45% 1,000 ML IV SCH ×3 (02:01→20:55)
[2017-09-25 05:11] LABS: Basophils % 0.7 % (0.0-0.8); Eosinophils # 0.3 10*3/uL (0.0-0.87); Eosinophils % 4.9 % (0.00-10.9); Hematocrit 33.5 VOL% (35.7-47.0); Hemoglobin 10.6 GM/DL (12.0-16.0); Immature Granulocytes % 0.2 %; Immature Granulocytes Absolute 0.01 #; Lymphocytes # 1.7 10*3/uL (1.4-4.0); Lymphocytes % 29.2 % (21.3-54.2); Mean Corpuscular HGB Conc 31.6 GM/DL (32-36); Mean Corpuscular Hemoglobin 31 PG (27-34); Mean Corpuscular Volume 96.3 FL (87-102); Mean Platelet Volume 10.1 FL (9.6-12.0); Monocytes # 0.6 10*3/uL (0.11-0.8); Monocytes % 10.2 % (1.7-12.7); Neutrophils # 3.2 10*3/uL (1.4-7.4); Neutrophils % 54.8 % (38.7-73.9); Platelet Count 255 T/CUMM (130-400); Red Blood Count 3.48 MC/CUMM (3.8-5.5); Red Cell Distribution Width 13.6 % (9.3-17.3); White Blood Count 5.8 T/CUMM (4-12)
[2017-09-25] MEDS: NITROGLYCERIN 2% OINT 1 INCH/GM PACK TOP SCH ×3 (05:33→17:58)
[2017-09-25 05:48] LABS: Albumin 2.9 G/DL (3.4-5.0); Bilirubin,Total 0.8 MG/DL (0.2-1.0); Calcium 8.4 MG/DL (8.5-10.1); Potassium 4.5 MMOL/L (3.5-5.1); Risk Ratio 1.74; Thyroid Stimulating Hormone 0.213 uIU/ml (0.358-3.74); Total Protein 5.7 G/DL (6.4-8.3)
[2017-09-25 05:50] LABS: Troponin I Only 0.172 NG/ML (0.00-0.045)
[2017-09-25] MEDS: INSULIN REGULAR 100 UNIT/ML SUBCUT SCH ×4 (09:09→20:56)
[2017-09-25] MEDS: ATORVASTATIN 20 MG TABLET PO SCH (09:56)
[2017-09-25] MEDS: PANTOPRAZOLE 40 MG TABLET PO SCH (09:56)
[2017-09-25] MEDS: ESCITALOPRAM 10 MG TABLET PO SCH (09:56)
[2017-09-25] MEDS: PREGABALIN 50 MG CAPSULE PO SCH ×2 (09:56→20:56)
[2017-09-25] MEDS: DILTIAZEM CD 120 MG CAPSULE PO SCH (09:56)
[2017-09-25] MEDS: ENOXAPARIN 40 MG/0.4 ML SYRINGE SUBCUT SCH (09:56)
[2017-09-25] MEDS: CILOSTAZOL 100 MG TABLET PO SCH ×2 (09:57→20:56)
[2017-09-25] MEDS: MORPHINE 4 MG/1 ML VIAL IV PRN (10:34)
[2017-09-25 10:37] LABS: Apearance,Urine CLEAR (Clear); Bilirubin,Urine Negative (Negative); Blood, Urine Negative (Negative); Glucose,Urine (UA) >=500 mg/dL (Negative); Ketones,Urine Negative (Negative); Nitrite,Urine Negative (Negative); Protein,Urine Negative; Squamous Epithelial Cell,Urine Occasional /HPF (0-10); Urine Color Straw (Yellow); Urine Specific Gravity 1.007 (1.001-1.035); Urine Urobilinogen < 2.0 EU/DL (0.2-1.0)
[2017-09-25] MEDS: ASPIRIN EC 81 MG TABLET PO SCH (13:40)
[2017-09-25] MEDS: BISOPROLOL 5 MG TABLET PO SCH (13:40)
[2017-09-25] MEDS ORDERED: MAGNESIUM HYDROXIDE SUSP 30 ML UDCUP PO PRN (19:33)
[2017-09-25] MEDS: cloNIDine 0.1 MG TABLET PO PRN (20:56)
[2017-09-26] MEDS: NITROGLYCERIN 2% OINT 1 INCH/GM PACK TOP SCH ×4 (00:16→17:34)
[2017-09-26] MEDS: SODIUM CHLORIDE 0.45% 1,000 ML IV SCH ×4 (00:16→17:34)
[2017-09-26 05:19] LABS: Basophils % 0.6 % (0.0-0.8); Eosinophils # 0.4 10*3/uL (0.0-0.87); Eosinophils % 5.8 % (0.00-10.9); Hematocrit 31.3 VOL% (35.7-47.0); Hemoglobin 10.2 GM/DL (12.0-16.0); Immature Granulocytes % 0.2 %; Immature Granulocytes Absolute 0.01 #; Lymphocytes # 1.8 10*3/uL (1.4-4.0); Lymphocytes % 28.9 % (21.3-54.2); Mean Corpuscular HGB Conc 32.6 GM/DL (32-36); Mean Corpuscular Hemoglobin 31 PG (27-34); Mean Platelet Volume 10.1 FL (9.6-12.0); Monocytes # 0.6 10*3/uL (0.11-0.8); Neutrophils # 3.5 10*3/uL (1.4-7.4); Neutrophils % 54.5 % (38.7-73.9); Platelet Count 242 T/CUMM (130-400); Red Blood Count 3.33 MC/CUMM (3.8-5.5); Red Cell Distribution Width 13.4 % (9.3-17.3); White Blood Count 6.3 T/CUMM (4-12)
[2017-09-26 05:45] LABS: Calcium 8.5 MG/DL (8.5-10.1); Osmolality,Calculated 288.3 MOS/KG (273-304); Potassium 4.6 MMOL/L (3.5-5.1)
[2017-09-26] MEDS: INSULIN REGULAR 100 UNIT/ML SUBCUT SCH ×4 (08:16→20:57)
[2017-09-26] MEDS ORDERED: MAGNESIUM SULF RIDER 2 GM in PREMIX 1 EACH IV PRN (08:19)
[2017-09-26] MEDS ORDERED: POTASSIUM CHLORIDE RIDER 10 MEQ in PREMIX 1 EACH IV PRN (08:19)
[2017-09-26] MEDS: PREGABALIN 50 MG CAPSULE PO SCH ×2 (08:48→20:56)
[2017-09-26] MEDS: CILOSTAZOL 100 MG TABLET PO SCH ×2 (08:48→20:56)
[2017-09-26] MEDS: ESCITALOPRAM 10 MG TABLET PO SCH (08:48)
[2017-09-26] MEDS: ATORVASTATIN 20 MG TABLET PO SCH (08:48)
[2017-09-26] MEDS: DILTIAZEM CD 120 MG CAPSULE PO SCH (09:09)
[2017-09-26] MEDS: ENOXAPARIN 40 MG/0.4 ML SYRINGE SUBCUT SCH (09:10)
[2017-09-26] MEDS: PANTOPRAZOLE 40 MG TABLET PO SCH (09:10)
[2017-09-26] MEDS: ASPIRIN EC 81 MG TABLET PO SCH (09:10)
[2017-09-26] MEDS: BISOPROLOL 5 MG TABLET PO SCH (09:10)
[2017-09-26] MEDS ORDERED: HEPARIN/NACL 0.9% 2 UNITS/ML 1,000 ML IV ONE (12:12)
[2017-09-26] MEDS ORDERED: DIAZEPAM 5 MG TABLET PO ONE (12:30)
[2017-09-26] MEDS ORDERED: diphenhydrAMINE CAP 25 MG CAPSULE PO ONE (12:30)
[2017-09-26] MEDS ORDERED: NITROGLYCERIN DRIP 50 MG/250 ML BOTTLE IV ONE (12:45)
[2017-09-26] MEDS ORDERED: VERAPAMIL 5 MG/2 ML VIAL ONE (12:48)
[2017-09-26] MEDS ORDERED: MIDAZOLAM 2 MG/2 ML VIAL ONE (12:50)
[2017-09-26] MEDS ORDERED: fentaNYL 100 MCG/2 ML VIAL ONE (12:50)
[2017-09-26] MEDS ORDERED: ENOXAPARIN 30 MG/0.3 ML SYRINGE ONE (13:16)
[2017-09-26] MEDS: INSULIN NPH/REGULAR 70/30 100 UNIT/ML SUBCUT SCH (15:43)
[2017-09-27] MEDS: NITROGLYCERIN 2% OINT 1 INCH/GM PACK TOP SCH ×4 (00:47→17:16)
[2017-09-27] MEDS: SODIUM CHLORIDE 0.45% 1,000 ML IV SCH ×4 (00:47→18:21)
[2017-09-27] MEDS: cloNIDine 0.1 MG TABLET PO PRN ×2 (05:11→21:49)
[2017-09-27 05:53] LABS: Basophils % 0.5 % (0.0-0.8); Eosinophils # 0.4 10*3/uL (0.0-0.87); Eosinophils % 6.3 % (0.00-10.9); Hematocrit 32.6 VOL% (35.7-47.0); Hemoglobin 10.4 GM/DL (12.0-16.0); Immature Granulocytes % 0.3 %; Immature Granulocytes Absolute 0.02 #; Lymphocytes # 1.7 10*3/uL (1.4-4.0); Lymphocytes % 24.9 % (21.3-54.2); Mean Corpuscular HGB Conc 31.9 GM/DL (32-36); Mean Corpuscular Hemoglobin 30 PG (27-34); Mean Corpuscular Volume 95.3 FL (87-102); Mean Platelet Volume 10.5 FL (9.6-12.0); Monocytes # 0.5 10*3/uL (0.11-0.8); Monocytes % 8.2 % (1.7-12.7); Neutrophils % 59.8 % (38.7-73.9); Platelet Count 235 T/CUMM (130-400); Red Blood Count 3.42 MC/CUMM (3.8-5.5); Red Cell Distribution Width 13.3 % (9.3-17.3); White Blood Count 6.6 T/CUMM (4-12)
[2017-09-27 06:05] LABS: Calcium 8.7 MG/DL (8.5-10.1); Osmolality,Calculated 284.3 MOS/KG (273-304); Potassium 4.6 MMOL/L (3.5-5.1)
[2017-09-27] MEDS ORDERED: DEXTROSE 50% 25 GM/50 ML VIAL IV PRN (07:32)
[2017-09-27] MEDS ORDERED: GLUCAGON 1 MG VIAL IM PRN (07:32)
[2017-09-27] MEDS: INSULIN REGULAR 100 UNIT/ML SUBCUT SCH ×4 (08:36→21:48)
[2017-09-27] MEDS: INSULIN NPH/REGULAR 70/30 100 UNIT/ML SUBCUT SCH ×2 (08:36→17:16)
[2017-09-27] MEDS: PREGABALIN 50 MG CAPSULE PO SCH ×2 (08:37→21:49)
[2017-09-27] MEDS: ATORVASTATIN 20 MG TABLET PO SCH (08:37)
[2017-09-27] MEDS: DILTIAZEM CD 120 MG CAPSULE PO SCH (08:37)
[2017-09-27] MEDS: BISOPROLOL 5 MG TABLET PO SCH (08:37)
[2017-09-27] MEDS: ESCITALOPRAM 10 MG TABLET PO SCH (08:38)
[2017-09-27] MEDS: ASPIRIN EC 81 MG TABLET PO SCH (08:38)
[2017-09-27] MEDS: ENOXAPARIN 40 MG/0.4 ML SYRINGE SUBCUT SCH (08:38)
[2017-09-27] MEDS: PANTOPRAZOLE 40 MG TABLET PO SCH (08:38)
[2017-09-27] MEDS: CILOSTAZOL 100 MG TABLET PO SCH ×2 (08:45→21:49)
[2017-09-27] MEDS ORDERED: TUBERCULIN SKIN TEST 0.1 ML SYRINGE INTRADERM ONE (10:00)
[2017-09-27] MEDS: APIXABAN 2.5 MG TABLET PO SCH (21:49)
[2017-09-28] MEDS: NITROGLYCERIN 2% OINT 1 INCH/GM PACK TOP SCH ×2 (00:32→05:24)
[2017-09-28] MEDS: SODIUM CHLORIDE 0.45% 1,000 ML IV SCH ×2 (01:53→08:51)
[2017-09-28 05:35] LABS: Basophils % 0.5 % (0.0-0.8); Eosinophils # 0.4 10*3/uL (0.0-0.87); Hematocrit 31.6 VOL% (35.7-47.0); Hemoglobin 10.4 GM/DL (12.0-16.0); Immature Granulocytes % 0.2 %; Immature Granulocytes Absolute 0.01 #; Lymphocytes # 1.7 10*3/uL (1.4-4.0); Lymphocytes % 26.9 % (21.3-54.2); Mean Corpuscular HGB Conc 32.9 GM/DL (32-36); Mean Corpuscular Hemoglobin 30 PG (27-34); Mean Corpuscular Volume 92.4 FL (87-102); Mean Platelet Volume 10.3 FL (9.6-12.0); Monocytes # 0.5 10*3/uL (0.11-0.8); Monocytes % 8.4 % (1.7-12.7); Neutrophils # 3.6 10*3/uL (1.4-7.4); Platelet Count 231 T/CUMM (130-400); Red Blood Count 3.42 MC/CUMM (3.8-5.5); Red Cell Distribution Width 13.2 % (9.3-17.3); White Blood Count 6.2 T/CUMM (4-12)
[2017-09-28 06:16] LABS: Calcium 8.4 MG/DL (8.5-10.1); Osmolality,Calculated 282.4 MOS/KG (273-304); Potassium 4.5 MMOL/L (3.5-5.1)
[2017-09-28] MEDS: APIXABAN 2.5 MG TABLET PO SCH (08:21)
[2017-09-28] MEDS: ATORVASTATIN 20 MG TABLET PO SCH (08:21)
[2017-09-28] MEDS: BISOPROLOL 5 MG TABLET PO SCH (08:21)
[2017-09-28] MEDS: PANTOPRAZOLE 40 MG TABLET PO SCH (08:21)
[2017-09-28] MEDS: ESCITALOPRAM 10 MG TABLET PO SCH (08:21)
[2017-09-28] MEDS: PREGABALIN 50 MG CAPSULE PO SCH (08:21)
[2017-09-28] MEDS: ASPIRIN EC 81 MG TABLET PO SCH (08:21)
[2017-09-28] MEDS: ENOXAPARIN 40 MG/0.4 ML SYRINGE SUBCUT SCH (08:22)
[2017-09-28] MEDS: INSULIN REGULAR 100 UNIT/ML SUBCUT SCH ×2 (08:22→12:12)
[2017-09-28] MEDS: INSULIN NPH/REGULAR 70/30 100 UNIT/ML SUBCUT SCH (08:22)
[2017-09-28] MEDS: DILTIAZEM CD 120 MG CAPSULE PO SCH (08:27)
[2017-09-28] MEDS: CILOSTAZOL 100 MG TABLET PO SCH (09:05)
[2017-09-28] MEDS ORDERED: LOSARTAN 25 MG TABLET PO SCH (10:00)
[2017-09-28 10:11] VITALS: BP 157/60
== END 2017-09-28 12:48 | disposition home health service (06) | DRG 286 ==
LOC: N.TELEN 14:22
PROVIDERS: ADMIT Internal Medicine Cardiovascular Disease; ATTEND Internal Medicine Cardiovascular Disease
PROC: CLCCHCL (ICD-10-PCS; 2017-09-26 13:15)

== ENCOUNTER 2017-10-07 17:34 | Inpatient (IN) ==
[2017-10-07] MEDS ORDERED: ATROPINE 1 MG/10 ML SYRINGE ONE (17:53)
[2017-10-07] MEDS ORDERED: ATROPINE 1 MG/10 ML SYRINGE IV STA (18:36)
[2017-10-07] MEDS ORDERED: traMADol 50 MG TABLET PO PRN (20:41)
[2017-10-07] MEDS ORDERED: ACETAMINOPHEN 500 MG TABLET PO PRN (20:41)
[2017-10-07] MEDS ORDERED: MAGNESIUM SULF RIDER 4 GM in PREMIX 1 EACH IV PRN (20:41)
[2017-10-07] MEDS ORDERED: MAGNESIUM SULF RIDER 2 GM in PREMIX 1 EACH IV PRN (20:41)
[2017-10-07] MEDS ORDERED: GLUCAGON 1 MG VIAL IM PRN (20:41)
[2017-10-07] MEDS ORDERED: ONDANSETRON 4 MG/2 ML VIAL IV PRN (20:41)
[2017-10-07] MEDS ORDERED: DEXTROSE 50% 25 GM/50 ML VIAL IV PRN (20:41)
[2017-10-07] MEDS: ATORVASTATIN 20 MG TABLET PO SCH (22:12)
[2017-10-07] MEDS: SODIUM CHLORIDE 0.45% 1,000 ML IV SCH (22:12)
[2017-10-08 06:24] LABS: Basophils # 0.1 10*3/uL (0.0-0.2); Basophils % 0.6 % (0.0-0.8); Eosinophils # 0.4 10*3/uL (0.0-0.87); Eosinophils % 4.5 % (0.00-10.9); Hematocrit 36.9 VOL% (35.7-47.0); Immature Granulocytes % 0.3 %; Immature Granulocytes Absolute 0.02 #; Lymphocytes # 2.6 10*3/uL (1.4-4.0); Lymphocytes % 32.9 % (21.3-54.2); Mean Corpuscular HGB Conc 32.5 GM/DL (32-36); Mean Corpuscular Hemoglobin 31 PG (27-34); Mean Corpuscular Volume 93.9 FL (87-102); Mean Platelet Volume 10.4 FL (9.6-12.0); Monocytes # 0.6 10*3/uL (0.11-0.8); Monocytes % 7.8 % (1.7-12.7); Neutrophils # 4.2 10*3/uL (1.4-7.4); Neutrophils % 53.9 % (38.7-73.9); Platelet Count 334 T/CUMM (130-400); Red Blood Count 3.93 MC/CUMM (3.8-5.5); Red Cell Distribution Width 13.6 % (9.3-17.3); White Blood Count 7.8 T/CUMM (4-12)
[2017-10-08 07:30] LABS: Calcium 8.5 MG/DL (8.5-10.1); Potassium 5.6 MMOL/L (3.5-5.1); Thyroid Stimulating Hormone 0.273 uIU/ml (0.358-3.74)
[2017-10-08] MEDS: INSULIN NPH/REGULAR 70/30 100 UNIT/ML SUBCUT SCH ×2 (08:18→17:26)
[2017-10-08] MEDS: SODIUM CHLORIDE 0.45% 1,000 ML IV SCH ×2 (10:14→23:18)
[2017-10-08] MEDS: PANTOPRAZOLE 40 MG TABLET PO SCH ×2 (11:39→13:12)
[2017-10-08] MEDS ORDERED: PROMETHAZINE 25 MG TABLET PO PRN (12:06)
[2017-10-08] MEDS ORDERED: NITROGLYCERIN SL 0.4 MG TABLET SL PRN (12:06)
[2017-10-08] MEDS ORDERED: amLODIPine 5 MG TABLET PO SCH (12:30)
[2017-10-08] MEDS: POTASSIUM CHLORIDE 20 MEQ TABLET PO SCH (13:02)
[2017-10-08] MEDS: ASCORBIC ACID 500 MG TABLET PO SCH ×2 (13:10→20:43)
[2017-10-08] MEDS: LOSARTAN 25 MG TABLET PO SCH (13:11)
[2017-10-08] MEDS ORDERED: ZALEPLON 5 MG CAPSULE PO ONE (20:30)
[2017-10-08] MEDS: PREGABALIN 50 MG CAPSULE PO SCH (20:44)
[2017-10-08] MEDS: ATORVASTATIN 20 MG TABLET PO SCH (20:44)
[2017-10-09 05:44] LABS: Calcium 8.8 MG/DL (8.5-10.1); Osmolality,Calculated 289.1 MOS/KG (273-304); Potassium 4.4 MMOL/L (3.5-5.1)
[2017-10-09] MEDS: ASCORBIC ACID 500 MG TABLET PO SCH (10:40)
[2017-10-09] MEDS: POTASSIUM CHLORIDE 20 MEQ TABLET PO SCH (10:40)
[2017-10-09] MEDS: PREGABALIN 50 MG CAPSULE PO SCH (10:41)
[2017-10-09] MEDS: LOSARTAN 25 MG TABLET PO SCH (10:41)
[2017-10-09] MEDS: PANTOPRAZOLE 40 MG TABLET PO SCH (10:41)
[2017-10-09] MEDS: INSULIN NPH/REGULAR 70/30 100 UNIT/ML SUBCUT SCH (10:42)
[2017-10-09 11:43] VITALS: BP 146/58
[2017-10-09] MEDS ORDERED: glipiZIDE 10 MG TABLET PO SCH (16:30)
[2017-10-09] MEDS ORDERED: CILOSTAZOL 100 MG TABLET PO SCH (21:00)
[2017-10-09] MEDS ORDERED: APIXABAN 2.5 MG TABLET PO SCH (21:00)
[2017-10-10] MEDS ORDERED: ESCITALOPRAM 10 MG TABLET PO SCH (09:00)
[2017-10-10] MEDS ORDERED: NON-FORMULARY MEDICATION PO SCH (09:00)
[2017-10-10] MEDS ORDERED: ASPIRIN EC 81 MG TABLET PO SCH (09:00)
== END 2017-10-09 14:32 | disposition home health service (06) | DRG 309 ==
LOC: EDUNIT# → EDBD → N.ED 17:34 → N.EDINP 19:03 → N.CC 19:59 → N.TELES 10-08 18:36
PROVIDERS: ADMIT Internal Medicine Cardiovascular Disease; ATTEND Internal Medicine Cardiovascular Disease

== ENCOUNTER 2019-05-28 14:39 | Inpatient (IN) ==
[2019-05-28] MEDS ORDERED: DEXTROSE 10% 250 ML BAG IV PRN (16:43)
[2019-05-28] MEDS ORDERED: GLUCAGON 1 MG VIAL IM PRN (16:43)
[2019-05-28] MEDS ORDERED: ACETAMINOPHEN 500 MG TABLET PO PRN (16:53)
[2019-05-28] MEDS ORDERED: NITROGLYCERIN SL 0.4 MG TABLET SL PRN (16:53)
[2019-05-28] MEDS ORDERED: DIPHENOXYLATE/ATROPINE 2.5-0.025 MG TABLET PO PRN (16:53)
[2019-05-28] MEDS ORDERED: NICOTINE 21 MG/24 HR PATCH TRANSDERM ONE (17:29)
[2019-05-28 17:44] LABS: Basophils % 0.5 % (0.0-0.8); Eosinophils # 0.2 10*3/uL (0.0-0.87); Eosinophils % 2.7 % (0.00-10.9); Hematocrit 39.5 VOL% (35.7-47.0); Hemoglobin 13.1 GM/DL (12.0-16.0); Immature Granulocytes % 0.3 %; Immature Granulocytes Absolute 0.02 #; Lymphocytes # 2.2 10*3/uL (1.4-4.0); Lymphocytes % 29.6 % (21.3-54.2); Mean Corpuscular HGB Conc 33.2 GM/DL (32-36); Mean Corpuscular Volume 98.3 FL (87-102); Mean Platelet Volume 10.8 FL (9.6-12.0); Monocytes % 7.2 % (1.7-12.7); Neutrophils % 59.7 % (38.7-73.9); Platelet Count 263 T/CUMM (130-400); Red Blood Count 4.02 MC/CUMM (3.8-5.5); Red Cell Distribution Width 13.3 % (9.3-17.3); White Blood Count 7.5 T/CUMM (4-12)
[2019-05-28 17:49] LABS: INR 0.9; PT Patient Result 9.8 SECS (9.6-12.2)
[2019-05-28] MEDS: LACTATED RINGERS 1,000 ML IV SCH (17:51)
[2019-05-28 18:02] LABS: Alanine Aminotransferase 16 U/L (13-56); Albumin 3.2 G/DL (3.4-5.0); Alkaline Phosphatase 94 U/L (45-117); Aspartate Amino Transferase 11 U/L (0-37); Bilirubin,Total < 0.39 MG/DL (0.2-1.0); Blood Urea Nitrogen 40 MG/DL (7-18); Calcium 8.1 MG/DL (8.5-10.1); Estimated Glom Filtration Rate 29 ML/MIN; Glucose 218 MG/DL (74-106); Osmolality,Calculated 297.3 MOS/KG (273-304); Total Protein 6.6 G/DL (6.4-8.3)
[2019-05-28] MEDS: HYDROmorphone 2 MG/1 ML VIAL IV PRN ×2 (18:42→20:49)
[2019-05-28] MEDS: PREGABALIN 75 MG CAPSULE PO SCH (20:37)
[2019-05-28] MEDS: ASCORBIC ACID 500 MG TABLET PO SCH (20:37)
[2019-05-28] MEDS: busPIRone 10 MG TABLET PO SCH (20:37)
[2019-05-28] MEDS: INSULIN REGULAR 100 UNIT/ML SUBCUT SCH (20:40)
[2019-05-29] MEDS: HYDROmorphone 2 MG/1 ML VIAL IV PRN ×6 (01:41→21:42)
[2019-05-29] MEDS: INSULIN REGULAR 100 UNIT/ML SUBCUT SCH ×4 (08:58→21:38)
[2019-05-29] MEDS: INSULIN NPH/REGULAR 70/30 100 UNIT/ML SUBCUT SCH ×2 (08:58→17:30)
[2019-05-29] MEDS ORDERED: GLUCAGON 1 MG VIAL IM PRN (11:12)
[2019-05-29] MEDS ORDERED: DEXTROSE 50% 25 GM/50 ML VIAL IV PRN (11:12)
[2019-05-29] MEDS: ALBUTEROL/IPRATROPIUM 3 ML NEB RESP TX SCH ×4 (11:18→23:56)
[2019-05-29] MEDS: NICOTINE 21 MG/24 HR PATCH TRANSDERM SCH (11:44)
[2019-05-29] MEDS: PREGABALIN 75 MG CAPSULE PO SCH ×2 (11:44→21:39)
[2019-05-29] MEDS: ESCITALOPRAM 10 MG TABLET PO SCH (11:44)
[2019-05-29] MEDS: ASPIRIN EC 81 MG TABLET PO SCH ×2 (11:45→11:48)
[2019-05-29] MEDS: busPIRone 10 MG TABLET PO SCH ×2 (11:45→21:40)
[2019-05-29] MEDS: glipiZIDE 10 MG TABLET PO SCH ×2 (11:45→18:06)
[2019-05-29] MEDS: ATORVASTATIN 20 MG TABLET PO SCH (11:45)
[2019-05-29] MEDS: DONEPEZIL 10 MG TABLET PO SCH (11:45)
[2019-05-29] MEDS: ASCORBIC ACID 500 MG TABLET PO SCH ×2 (11:46→21:39)
[2019-05-29] MEDS: LACTATED RINGERS 1,000 ML IV SCH (13:13)
[2019-05-30] MEDS: HYDROmorphone 2 MG/1 ML VIAL IV PRN ×2 (02:58→18:54)
[2019-05-30] MEDS: ALBUTEROL/IPRATROPIUM 3 ML NEB RESP TX SCH ×5 (03:32→19:56)
[2019-05-30] MEDS ORDERED: VANCOMYCIN INJ 1,000 MG in SODIUM CHLORIDE 0.9% 250 ML IV ONE (06:00)
[2019-05-30 06:57] LABS: Calcium 8.3 MG/DL (8.5-10.1); Osmolality,Calculated 300.6 MOS/KG (273-304)
[2019-05-30] MEDS: ASPIRIN EC 81 MG TABLET PO SCH (08:19)
[2019-05-30] MEDS: INSULIN NPH/REGULAR 70/30 100 UNIT/ML SUBCUT SCH ×2 (08:19→17:19)
[2019-05-30] MEDS: ESCITALOPRAM 10 MG TABLET PO SCH (08:19)
[2019-05-30] MEDS: ATORVASTATIN 20 MG TABLET PO SCH (08:19)
[2019-05-30] MEDS: busPIRone 10 MG TABLET PO SCH ×2 (08:19→21:55)
[2019-05-30] MEDS: ASCORBIC ACID 500 MG TABLET PO SCH ×2 (08:19→21:55)
[2019-05-30] MEDS: glipiZIDE 10 MG TABLET PO SCH ×2 (08:19→17:19)
[2019-05-30] MEDS: INSULIN REGULAR 100 UNIT/ML SUBCUT SCH ×4 (08:19→22:50)
[2019-05-30] MEDS: PREGABALIN 75 MG CAPSULE PO SCH ×2 (08:19→21:55)
[2019-05-30] MEDS: DONEPEZIL 10 MG TABLET PO SCH (08:19)
[2019-05-30] MEDS ORDERED: HEPARIN 5,000 UNIT/1 ML VIAL ONE (11:24)
[2019-05-30] MEDS ORDERED: TISSUE ADHESIVE 1 EACH APPLICATOR TOP ONE ×2 (11:24→12:06)
[2019-05-30] MEDS ORDERED: THROMBIN TOPICAL (RECOMBINANT) 5,000 UNIT VIAL TOP ONE (11:24)
[2019-05-30] MEDS ORDERED: VANCOMYCIN 500 MG VIAL ONE (11:24)
[2019-05-30] MEDS: NICOTINE 21 MG/24 HR PATCH TRANSDERM SCH (11:54)
[2019-05-30 13:49] LABS: Apearance,Urine CLEAR (Clear); Bacteria,Urine Occasional /HPF (Few); Bilirubin,Urine Negative (Negative); Blood, Urine Negative (Negative); Glucose,Urine (UA) >=500 mg/dL (Negative); Hyaline Casts,Urine 1 /LPF (0-3); Ketones,Urine Negative (Negative); Nitrite,Urine Negative (Negative); Protein,Urine Negative; RBC,Urine <1 /HPF (0-4); Urine Color Straw (Yellow); Urine Specific Gravity 1.009 (1.001-1.035); Urine Urobilinogen < 2.0 EU/DL (0.2-1.0); WBC,Urine <1 /HPF (0-6)
[2019-05-30] MEDS ORDERED: ONDANSETRON 4 MG/2 ML VIAL IV PRN (13:55)
[2019-05-30] MEDS ORDERED: SEVOFLURANE 1 UNIT/15 MINUTE INH ONE (13:59)
[2019-05-30] MEDS ORDERED: PROPOFOL 200 MG/20 ML VIAL IV ONE (13:59)
[2019-05-30] MEDS ORDERED: HEPARIN 10,000 UNIT/10 ML VIAL ONE (13:59)
[2019-05-30] MEDS ORDERED: LIDOCAINE 2% 5 ML VIAL ONE (13:59)
[2019-05-30] MEDS ORDERED: ROCURONIUM 100 MG/10 ML VIAL IV ONE (14:00)
[2019-05-30] MEDS ORDERED: DEXAMETHASONE 4 MG/1 ML VIAL ONE (14:00)
[2019-05-30] MEDS ORDERED: PROTAMINE SULFATE 50 MG/5 ML VIAL IV ONE (14:00)
[2019-05-30] MEDS ORDERED: PHENYLEPHRINE 1 MG/10 ML SYRINGE IV ONE (14:00)
[2019-05-30] MEDS ORDERED: GLYCOPYRROLATE 0.4 MG/2 ML VIAL ONE (14:00)
[2019-05-30] MEDS ORDERED: NEOSTIGMINE 10 MG/10 ML VIAL ONE (14:00)
[2019-05-30] MEDS ORDERED: LACTATED RINGERS 1,000 ML IV ONE (14:00)
[2019-05-30] MEDS ORDERED: fentaNYL 100 MCG/2 ML VIAL ONE (14:00)
[2019-05-30] MEDS: LACTATED RINGERS 1,000 ML IV SCH (15:05)
[2019-05-30] MEDS: DOCUSATE SODIUM 100 MG CAPSULE PO SCH (21:55)
[2019-05-30] MEDS: traMADol 50 MG TABLET PO PRN (23:06)
[2019-05-31] MEDS: ALBUTEROL/IPRATROPIUM 3 ML NEB RESP TX SCH ×6 (00:50→19:52)
[2019-05-31] MEDS ORDERED: GLUCAGON 1 MG VIAL IM PRN (04:29)
[2019-05-31] MEDS ORDERED: DEXTROSE 50% 25 GM/50 ML VIAL IV PRN (04:29)
[2019-05-31] MEDS: HYDROmorphone 2 MG/1 ML VIAL IV PRN ×4 (05:51→22:02)
[2019-05-31 06:15] LABS: Hematocrit 38.1 VOL% (35.7-47.0); Hemoglobin 12.3 GM/DL (12.0-16.0)
[2019-05-31 06:41] LABS: Calcium 8.2 MG/DL (8.5-10.1); Osmolality,Calculated 292.8 MOS/KG (273-304)
[2019-05-31] MEDS: INSULIN REGULAR 100 UNIT/ML SUBCUT SCH ×4 (08:15→21:31)
[2019-05-31] MEDS: ASCORBIC ACID 500 MG TABLET PO SCH ×2 (08:47→21:38)
[2019-05-31] MEDS: busPIRone 10 MG TABLET PO SCH ×2 (08:47→21:38)
[2019-05-31] MEDS: DONEPEZIL 10 MG TABLET PO SCH (08:47)
[2019-05-31] MEDS: DOCUSATE SODIUM 100 MG CAPSULE PO SCH ×2 (08:47→21:38)
[2019-05-31] MEDS: ESCITALOPRAM 10 MG TABLET PO SCH (08:48)
[2019-05-31] MEDS: glipiZIDE 10 MG TABLET PO SCH ×2 (08:48→16:27)
[2019-05-31] MEDS: LOSARTAN 50 MG TABLET PO SCH (08:48)
[2019-05-31] MEDS: ASPIRIN EC 81 MG TABLET PO SCH (08:48)
[2019-05-31] MEDS: traMADol 50 MG TABLET PO PRN (08:48)
[2019-05-31] MEDS: ATORVASTATIN 20 MG TABLET PO SCH (08:48)
[2019-05-31] MEDS: INSULIN NPH/REGULAR 70/30 100 UNIT/ML SUBCUT SCH ×2 (08:49→16:28)
[2019-05-31] MEDS: NICOTINE 21 MG/24 HR PATCH TRANSDERM SCH (08:50)
[2019-05-31] MEDS: PREGABALIN 75 MG CAPSULE PO SCH ×2 (09:40→21:38)
[2019-05-31] MEDS: LACTATED RINGERS 1,000 ML IV SCH (12:03)
[2019-05-31] MEDS ORDERED: POLYVINYL ALCOHOL 1.4% OPH SOLN 15 ML BOTTLE BOTH EYES PRN (15:45)
[2019-05-31] MEDS: CLOPIDOGREL 75 MG TABLET PO SCH (16:33)
[2019-06-01] MEDS: ALBUTEROL/IPRATROPIUM 3 ML NEB RESP TX SCH ×7 (00:03→23:05)
[2019-06-01] MEDS: HYDROmorphone 2 MG/1 ML VIAL IV PRN ×3 (04:26→20:38)
[2019-06-01] MEDS: glipiZIDE 10 MG TABLET PO SCH ×2 (08:54→16:58)
[2019-06-01] MEDS: ESCITALOPRAM 10 MG TABLET PO SCH (08:54)
[2019-06-01] MEDS: ATORVASTATIN 20 MG TABLET PO SCH (08:54)
[2019-06-01] MEDS: CLOPIDOGREL 75 MG TABLET PO SCH (08:54)
[2019-06-01] MEDS: PREGABALIN 75 MG CAPSULE PO SCH ×2 (08:54→20:37)
[2019-06-01] MEDS: DOCUSATE SODIUM 100 MG CAPSULE PO SCH ×2 (08:54→20:37)
[2019-06-01] MEDS: busPIRone 10 MG TABLET PO SCH ×2 (08:54→20:37)
[2019-06-01] MEDS: INSULIN NPH/REGULAR 70/30 100 UNIT/ML SUBCUT SCH ×2 (08:55→16:59)
[2019-06-01] MEDS: LOSARTAN 50 MG TABLET PO SCH (08:55)
[2019-06-01] MEDS: ASPIRIN EC 81 MG TABLET PO SCH (08:55)
[2019-06-01] MEDS: DONEPEZIL 10 MG TABLET PO SCH (08:55)
[2019-06-01] MEDS: NICOTINE 21 MG/24 HR PATCH TRANSDERM SCH (08:56)
[2019-06-01] MEDS: Dapagliflozin [Farxiga] 5 MG PO SCH (09:07)
[2019-06-01] MEDS: INSULIN REGULAR 100 UNIT/ML SUBCUT SCH ×4 (09:07→20:26)
[2019-06-01] MEDS: ASCORBIC ACID 500 MG TABLET PO SCH ×2 (14:59→20:37)
[2019-06-02] MEDS: ALBUTEROL/IPRATROPIUM 3 ML NEB RESP TX SCH ×2 (04:00→07:21)
[2019-06-02] MEDS: INSULIN NPH/REGULAR 70/30 100 UNIT/ML SUBCUT SCH (08:02)
[2019-06-02] MEDS: busPIRone 10 MG TABLET PO SCH (08:04)
[2019-06-02] MEDS: ESCITALOPRAM 10 MG TABLET PO SCH (08:04)
[2019-06-02] MEDS: glipiZIDE 10 MG TABLET PO SCH (08:04)
[2019-06-02] MEDS: NICOTINE 21 MG/24 HR PATCH TRANSDERM SCH (08:04)
[2019-06-02] MEDS: ASPIRIN EC 81 MG TABLET PO SCH (08:04)
[2019-06-02] MEDS: CLOPIDOGREL 75 MG TABLET PO SCH (08:04)
[2019-06-02] MEDS: ASCORBIC ACID 500 MG TABLET PO SCH (08:04)
[2019-06-02] MEDS: PREGABALIN 75 MG CAPSULE PO SCH (08:04)
[2019-06-02] MEDS: DOCUSATE SODIUM 100 MG CAPSULE PO SCH (08:04)
[2019-06-02] MEDS: ATORVASTATIN 20 MG TABLET PO SCH (08:04)
[2019-06-02] MEDS: DONEPEZIL 10 MG TABLET PO SCH (08:04)
[2019-06-02] MEDS: LOSARTAN 50 MG TABLET PO SCH (08:04)
[2019-06-02 08:33] VITALS: BP 166/53
[2019-06-02] MEDS: traMADol 50 MG TABLET PO PRN (09:03)
[2019-06-02] MEDS: INSULIN REGULAR 100 UNIT/ML SUBCUT SCH (09:12)
[2019-06-02] MEDS: Dapagliflozin [Farxiga] 5 MG PO SCH (09:41)
== END 2019-06-02 09:49 | disposition home or self-care (01) | DRG 253 ==
LOC: N.5E 15:18 → N.CC 05-30 14:30 → N.3E 05-31 14:10
PROVIDERS: ADMIT Surgery; ATTEND Surgery

== ENCOUNTER 2020-05-05 14:21 | Inpatient (IN) ==
[2020-05-05 15:02] LABS: Basophils % 0.1 % (0.0-0.8); Eosinophils # 0.1 10*3/uL (0.0-0.87); Eosinophils % 0.6 % (0.00-10.9); Hematocrit 29.5 VOL% (35.7-47.0); Hemoglobin 9.3 GM/DL (12.0-16.0); Immature Granulocytes % 0.7 %; Immature Granulocytes Absolute 0.06 #; Lymphocytes # 0.3 10*3/uL (1.4-4.0); Lymphocytes % 3.7 % (21.3-54.2); Mean Corpuscular HGB Conc 31.5 GM/DL (32-36); Mean Corpuscular Volume 96.4 FL (87-102); Mean Platelet Volume 9.9 FL (9.6-12.0); Monocytes % 3.9 % (1.7-12.7); Platelet Count 287 T/CUMM (130-400); Red Blood Count 3.06 MC/CUMM (3.8-5.5); Red Cell Distribution Width 15.6 % (9.3-17.3); White Blood Count 8.5 T/CUMM (4-12)
[2020-05-05 15:19] LABS: Bilirubin,Urine Negative (Negative); Blood, Urine Small mg/dL (Negative); Glucose,Urine (UA) 50 mg/dL (Negative); Ketones,Urine Negative (Negative); Nitrite,Urine Negative (Negative); Protein,Urine 100 MG/DL; RBC,Urine 410 /HPF (0-4); Urine Appearance CLOUDY (Clear); Urine Color Yellow (Yellow); Urine Specific Gravity 1.009 (1.001-1.035); Urine Urobilinogen < 2.0 EU/DL (0.2-1.0); WBC,Urine 17913 /HPF (0-6)
[2020-05-05 15:19] LABS: Alanine Aminotransferase 14 U/L (13-56); Albumin 1.8 G/DL (3.4-5.0); Alkaline Phosphatase 80 U/L (45-117); Aspartate Amino Transferase 23 U/L (0-37); Bilirubin,Total < 0.39 MG/DL (0.2-1.0); Blood Urea Nitrogen 20 MG/DL (7-18); Calcium 7.9 MG/DL (8.5-10.1); Estimated Glom Filtration Rate 18 ML/MIN; Glucose 174 MG/DL (74-106); Osmolality,Calculated 281.7 MOS/KG (273-304); Total Protein 6.5 G/DL (6.4-8.3)
[2020-05-05] MEDS ORDERED: LACTATED RINGERS 1,000 ML IV ONE (15:25)
[2020-05-05] MEDS ORDERED: SODIUM CHLORIDE 0.9% 100 ML IV ONE (15:26)
[2020-05-05] MEDS ORDERED: cefTRIAXone 1,000 MG in SODIUM CHLORIDE 0.9% 100 ML IV STA (15:26)
[2020-05-05] MEDS ORDERED: cefTRIAXone 1,000 MG VIAL ONE (15:26)
[2020-05-05] MEDS ORDERED: ONDANSETRON 4 MG/2 ML VIAL IV PRN (16:04)
[2020-05-05] MEDS ORDERED: DEXTROSE 50% 25 GM/50 ML VIAL IV PRN ×2 (16:04)
[2020-05-05] MEDS ORDERED: GLUCAGON 1 MG VIAL IM PRN ×2 (16:04)
[2020-05-05] MEDS: LACTATED RINGERS 1,000 ML IV SCH (16:31)
[2020-05-05] MEDS ORDERED: BENZONATATE 100 MG CAPSULE PO PRN (16:51)
[2020-05-05] MEDS: HEPARIN 5,000 UNIT/1 ML VIAL SUBCUT SCH (16:53)
[2020-05-05 18:02] LABS: Lymphocytes 3 % (20-55); Platelet Estimate Adequate; Segmented Neutrophils 95 % (50-85); Total Cells Counted 100
[2020-05-06] MEDS: HEPARIN 5,000 UNIT/1 ML VIAL SUBCUT SCH ×3 (01:13→16:43)
[2020-05-06] MEDS: ACETAMINOPHEN 325 MG TABLET PO PRN (05:06)
[2020-05-06] MEDS: LACTATED RINGERS 1,000 ML IV SCH ×2 (05:25→09:02)
[2020-05-06 06:09] LABS: Basophils % 0.2 % (0.0-0.8); Eosinophils % 0.2 % (0.00-10.9); Hematocrit 26.1 VOL% (35.7-47.0); Hemoglobin 8.3 GM/DL (12.0-16.0); Immature Granulocytes % 0.5 %; Immature Granulocytes Absolute 0.03 #; Lymphocytes # 0.9 10*3/uL (1.4-4.0); Mean Corpuscular HGB Conc 31.8 GM/DL (32-36); Mean Corpuscular Volume 93.5 FL (87-102); Mean Platelet Volume 10.2 FL (9.6-12.0); Monocytes % 6.5 % (1.7-12.7); Neutrophils % 78.6 % (38.7-73.9); Platelet Count 241 T/CUMM (130-400); Red Blood Count 2.79 MC/CUMM (3.8-5.5); Red Cell Distribution Width 15.5 % (9.3-17.3); White Blood Count 6.7 T/CUMM (4-12)
[2020-05-06 06:12] LABS: Calcium 7.8 MG/DL (8.5-10.1); Osmolality,Calculated 279.4 MOS/KG (273-304)
[2020-05-06] MEDS: SODIUM BICARB IV SCH (12:06)
[2020-05-06] MEDS: POTASSIUM CHLORIDE IV SCH (12:06)
[2020-05-06] MEDS: DEXTROSE 5% IV SCH (12:06)
[2020-05-06] MEDS: ALBUTEROL INHALER 18 GM INH SCH (19:20)
[2020-05-06] MEDS ORDERED: FUROSEMIDE 40 MG/4 ML VIAL IV ONE (22:11)
[2020-05-07] MEDS: ALBUTEROL INHALER 18 GM INH SCH ×4 (02:10→18:56)
[2020-05-07] MEDS: POTASSIUM CHLORIDE IV SCH ×2 (02:10→14:12)
[2020-05-07] MEDS: SODIUM BICARB IV SCH ×2 (02:10→14:12)
[2020-05-07] MEDS: HEPARIN 5,000 UNIT/1 ML VIAL SUBCUT SCH ×3 (02:10→17:42)
[2020-05-07] MEDS: DEXTROSE 5% IV SCH ×2 (02:10→14:12)
[2020-05-07] MEDS: ACETAMINOPHEN 325 MG TABLET PO PRN (05:03)
[2020-05-07 05:58] LABS: Basophils % 0.2 % (0.0-0.8); Hemoglobin 8.4 GM/DL (12.0-16.0); Immature Granulocytes % 0.4 %; Immature Granulocytes Absolute 0.02 #; Lymphocytes # 0.6 10*3/uL (1.4-4.0); Lymphocytes % 11.7 % (21.3-54.2); Mean Corpuscular HGB Conc 32.3 GM/DL (32-36); Mean Corpuscular Volume 92.5 FL (87-102); Mean Platelet Volume 10.1 FL (9.6-12.0); Monocytes % 4.6 % (1.7-12.7); Neutrophils % 83.1 % (38.7-73.9); Platelet Count 232 T/CUMM (130-400); Red Blood Count 2.81 MC/CUMM (3.8-5.5); Red Cell Distribution Width 15.2 % (9.3-17.3); White Blood Count 5.4 T/CUMM (4-12)
[2020-05-07 06:31] LABS: Calcium 7.5 MG/DL (8.5-10.1); Osmolality,Calculated 283.7 MOS/KG (273-304)
[2020-05-07] MEDS ORDERED: POTASSIUM CHLORIDE 20 MEQ TABLET PO ONE (07:14)
[2020-05-07] MEDS: MULTIVITAMIN (CENTRUM) TABLET PO SCH (08:09)
[2020-05-08] MEDS: HEPARIN 5,000 UNIT/1 ML VIAL SUBCUT SCH ×3 (01:20→17:40)
[2020-05-08] MEDS: ALBUTEROL INHALER 18 GM INH SCH ×4 (01:20→19:02)
[2020-05-08 05:29] LABS: Basophils % 0.2 % (0.0-0.8); Hemoglobin 8.5 GM/DL (12.0-16.0); Immature Granulocytes % 0.6 %; Immature Granulocytes Absolute 0.03 #; Lymphocytes # 0.6 10*3/uL (1.4-4.0); Lymphocytes % 11.6 % (21.3-54.2); Mean Corpuscular HGB Conc 32.7 GM/DL (32-36); Mean Corpuscular Volume 90.6 FL (87-102); Monocytes % 5.9 % (1.7-12.7); Neutrophils % 81.7 % (38.7-73.9); Platelet Count 245 T/CUMM (130-400); Red Blood Count 2.87 MC/CUMM (3.8-5.5); Red Cell Distribution Width 14.8 % (9.3-17.3); White Blood Count 4.9 T/CUMM (4-12)
[2020-05-08 05:53] LABS: Calcium 7.7 MG/DL (8.5-10.1)
[2020-05-08] MEDS ORDERED: FUROSEMIDE 40 MG/4 ML VIAL IV ONE (09:05)
[2020-05-08] MEDS: DEXTROSE 5% IV SCH ×2 (09:45→18:13)
[2020-05-08] MEDS: POTASSIUM CHLORIDE IV SCH ×2 (09:45→18:13)
[2020-05-08] MEDS: SODIUM BICARB IV SCH ×2 (09:45→18:13)
[2020-05-08] MEDS: MULTIVITAMIN (CENTRUM) TABLET PO SCH (09:46)
[2020-05-08] MEDS: MENTHOL/ZINC OXIDE OINT 71 GM JAR TOP SCH ×2 (11:47→21:24)
[2020-05-08] MEDS: INSULIN LISPRO 100 UNIT/ML SUBCUT SCH ×3 (12:00→21:24)
[2020-05-08] MEDS ORDERED: SODIUM BICARB INJ 150 MEQ in DEXTROSE 5% NACL 0.45% 1,000 ML IV SCH (13:00)
[2020-05-08] MEDS ORDERED: traMADol 50 MG TABLET PO PRN (20:10)
[2020-05-08] MEDS ORDERED: DIPHENOXYLATE/ATROPINE 2.5-0.025 MG TABLET PO ONE (20:27)
[2020-05-09] MEDS: ALBUTEROL INHALER 18 GM INH SCH ×4 (01:35→18:23)
[2020-05-09] MEDS: HEPARIN 5,000 UNIT/1 ML VIAL SUBCUT SCH ×3 (01:35→16:48)
[2020-05-09] MEDS: POTASSIUM CHLORIDE IV SCH (05:15)
[2020-05-09] MEDS: DEXTROSE 5% IV SCH (05:15)
[2020-05-09] MEDS: SODIUM BICARB IV SCH (05:15)
[2020-05-09 05:43] LABS: Basophils % 0.2 % (0.0-0.8); Eosinophils # 0.1 10*3/uL (0.0-0.87); Eosinophils % 1.2 % (0.00-10.9); Hematocrit 25.4 VOL% (35.7-47.0); Hemoglobin 8.3 GM/DL (12.0-16.0); Immature Granulocytes % 0.5 %; Immature Granulocytes Absolute 0.02 #; Lymphocytes # 1.3 10*3/uL (1.4-4.0); Lymphocytes % 28.9 % (21.3-54.2); Mean Corpuscular HGB Conc 32.7 GM/DL (32-36); Mean Corpuscular Volume 90.7 FL (87-102); Mean Platelet Volume 10.5 FL (9.6-12.0); Monocytes % 6.5 % (1.7-12.7); Neutrophils % 62.7 % (38.7-73.9); Platelet Count 249 T/CUMM (130-400); Red Cell Distribution Width 14.6 % (9.3-17.3); White Blood Count 4.3 T/CUMM (4-12)
[2020-05-09 06:01] LABS: Calcium 7.6 MG/DL (8.5-10.1)
[2020-05-09 06:07] LABS: Hypochromasia 1+; Microcytosis 1+; Ovalocytes Slight; Platelet Estimate Adequate
[2020-05-09] MEDS: INSULIN LISPRO 100 UNIT/ML SUBCUT SCH ×4 (09:13→20:39)
[2020-05-09] MEDS: MENTHOL/ZINC OXIDE OINT 71 GM JAR TOP SCH ×2 (09:13→20:39)
[2020-05-09] MEDS: MULTIVITAMIN (CENTRUM) TABLET PO SCH (09:14)
[2020-05-09] MEDS: SODIUM CHLOR 0.9% KCL 20 MEQ 20 MEQ/1,000 ML BAG IV SCH ×2 (11:28→20:06)
[2020-05-09] MEDS ORDERED: MAGNESIUM SULF RIDER 2 GM in PREMIX 1 EACH IV ONE (15:56)
[2020-05-09] MEDS ORDERED: POTASSIUM CHLORIDE 20 MEQ TABLET PO PRN (15:57)
[2020-05-10] MEDS: SODIUM CHLOR 0.9% KCL 20 MEQ 20 MEQ/1,000 ML BAG IV SCH ×4 (00:04→23:36)
[2020-05-10] MEDS: ALBUTEROL INHALER 18 GM INH SCH ×4 (00:15→18:26)
[2020-05-10] MEDS: HEPARIN 5,000 UNIT/1 ML VIAL SUBCUT SCH ×3 (00:15→17:24)
[2020-05-10] MEDS ORDERED: FUROSEMIDE 20 MG/2 ML VIAL IV ONE (03:33)
[2020-05-10] MEDS ORDERED: FUROSEMIDE 40 MG/4 ML VIAL IV ONE (04:00)
[2020-05-10 05:29] LABS: Basophils % 0.1 % (0.0-0.8); Eosinophils % 0.1 % (0.00-10.9); Hematocrit 30.2 VOL% (35.7-47.0); Hemoglobin 9.4 GM/DL (12.0-16.0); Immature Granulocytes % 0.5 %; Immature Granulocytes Absolute 0.04 #; Lymphocytes # 1.6 10*3/uL (1.4-4.0); Lymphocytes % 22.1 % (21.3-54.2); Mean Corpuscular HGB Conc 31.1 GM/DL (32-36); Mean Corpuscular Volume 96.8 FL (87-102); Mean Platelet Volume 10.6 FL (9.6-12.0); NRBC # 0.02 10*3/uL; Neutrophils % 73.2 % (38.7-73.9); Platelet Count 305 T/CUMM (130-400); Red Blood Count 3.12 MC/CUMM (3.8-5.5); White Blood Count 7.4 T/CUMM (4-12)
[2020-05-10 06:08] LABS: ABG Base Excess -12.9 MMOL/L (-2.5-2.5); ABG HCO3 14.3 MMOL/L (20-26); ABG Oxygen Saturation 94.1 % (95-100); ABG PCO2 33.2 MM HG (35-48); ABG PH 7.228 (7.35-7.45); ABG PO2 92.7 MM HG (80-95); Allen Test Positive
[2020-05-10 06:36] LABS: Calcium 8.1 MG/DL (8.5-10.1); Osmolality,Calculated 274.7 MOS/KG (273-304)
[2020-05-10] MEDS: MORPHINE 4 MG/1 ML VIAL IV PRN (07:18)
[2020-05-10] MEDS ORDERED: VANCOMYCIN INJ 1,250 MG in SODIUM CHLORIDE 0.9% 250 ML IV PRN (08:45)
[2020-05-10] MEDS ORDERED: cefTRIAXone 1,000 MG in SYRINGE 1 EACH IV SCH (09:00)
[2020-05-10] MEDS: INSULIN LISPRO 100 UNIT/ML SUBCUT SCH ×4 (09:23→22:03)
[2020-05-10] MEDS: MULTIVITAMIN (CENTRUM) TABLET PO SCH (09:41)
[2020-05-10] MEDS: MEROPENEM 500 MG in SODIUM CHLORIDE 0.9% 100 ML IV SCH ×2 (09:49→22:03)
[2020-05-10] MEDS ORDERED: VANCOMYCIN INJ 1,250 MG in SODIUM CHLORIDE 0.9% 250 ML IV ONE (10:00)
[2020-05-10 10:07] LABS: ABG Base Excess -2.9 MMOL/L (-2.5-2.5); ABG HCO3 21.9 MMOL/L (20-26); ABG Oxygen Saturation 94.8 % (95-100); ABG PCO2 34.5 MM HG (35-48); ABG PO2 77.2 MM HG (80-95); ABG TCO2 19.8 MMOL/L (23-27)
[2020-05-10 10:17] LABS: Glucose,Urine (UA) Negative (Negative); Mucus,Urine Few /LPF (Occasional); Protein,Urine 100 MG/DL; RBC,Urine 2271 /HPF (0-4); Urine Appearance Turbid (Clear); Urine Color Amber (Yellow); WBC,Urine 17072 /HPF (0-6)
[2020-05-10 10:18] LABS: Bilirubin,Urine Negative (Negative); Blood, Urine Large mg/dL (Negative); Ketones,Urine Negative (Negative); Nitrite,Urine Negative (Negative); Urine Urobilinogen 0.2 EU/DL (0.2-1.0)
[2020-05-10] MEDS: MENTHOL/ZINC OXIDE OINT 71 GM JAR TOP SCH ×2 (10:56→22:03)
[2020-05-10] MEDS: ACETAMINOPHEN 325 MG TABLET PO PRN (12:08)
[2020-05-11] MEDS: ALBUTEROL INHALER 18 GM INH SCH ×4 (00:23→18:02)
[2020-05-11] MEDS: HEPARIN 5,000 UNIT/1 ML VIAL SUBCUT SCH ×3 (00:23→16:51)
[2020-05-11] MEDS: MORPHINE 4 MG/1 ML VIAL IV PRN (03:11)
[2020-05-11 05:54] LABS: Basophils % 0.2 % (0.0-0.8); Eosinophils % 0.1 % (0.00-10.9); Hematocrit 30.2 VOL% (35.7-47.0); Hemoglobin 9.5 GM/DL (12.0-16.0); Immature Granulocytes % 1.5 %; Immature Granulocytes Absolute 0.13 #; Lymphocytes # 1.4 10*3/uL (1.4-4.0); Lymphocytes % 16.3 % (21.3-54.2); Mean Corpuscular HGB Conc 31.5 GM/DL (32-36); Mean Corpuscular Volume 93.8 FL (87-102); Mean Platelet Volume 11.1 FL (9.6-12.0); Monocytes % 3.3 % (1.7-12.7); NRBC # 0.05 10*3/uL; Neutrophils % 78.6 % (38.7-73.9); Platelet Count 235 T/CUMM (130-400); Red Blood Count 3.22 MC/CUMM (3.8-5.5); Red Cell Distribution Width 14.6 % (9.3-17.3); White Blood Count 8.6 T/CUMM (4-12)
[2020-05-11 06:09] LABS: Calcium 7.5 MG/DL (8.5-10.1); Osmolality,Calculated 285.5 MOS/KG (273-304)
[2020-05-11] MEDS: INSULIN LISPRO 100 UNIT/ML SUBCUT SCH ×4 (07:31→20:45)
[2020-05-11] MEDS: MULTIVITAMIN (CENTRUM) TABLET PO SCH (09:24)
[2020-05-11] MEDS: MEROPENEM 500 MG in SODIUM CHLORIDE 0.9% 100 ML IV SCH (09:26)
[2020-05-11] MEDS: MENTHOL/ZINC OXIDE OINT 71 GM JAR TOP SCH ×2 (09:30→20:45)
[2020-05-11] MEDS ORDERED: VANCOMYCIN INJ 1,250 MG in SODIUM CHLORIDE 0.9% 250 ML IV ONE (13:30)
[2020-05-11] MEDS: SODIUM CHLOR 0.9% KCL 20 MEQ 20 MEQ/1,000 ML BAG IV SCH (22:55)
[2020-05-12] MEDS: MORPHINE 4 MG/1 ML VIAL IV PRN (00:21)
[2020-05-12] MEDS: MEROPENEM 500 MG in SODIUM CHLORIDE 0.9% 100 ML IV SCH ×2 (00:22→09:18)
[2020-05-12] MEDS: ALBUTEROL INHALER 18 GM INH SCH ×4 (00:23→21:00)
[2020-05-12] MEDS: HEPARIN 5,000 UNIT/1 ML VIAL SUBCUT SCH ×3 (01:34→16:52)
[2020-05-12 06:11] LABS: Basophils % 0.2 % (0.0-0.8); Hematocrit 29.4 VOL% (35.7-47.0); Hemoglobin 9.3 GM/DL (12.0-16.0); Immature Granulocytes % 3.6 %; Immature Granulocytes Absolute 0.35 #; Lymphocytes # 0.6 10*3/uL (1.4-4.0); Lymphocytes % 6.5 % (21.3-54.2); Mean Corpuscular HGB Conc 31.6 GM/DL (32-36); Mean Corpuscular Volume 93.6 FL (87-102); Mean Platelet Volume 10.7 FL (9.6-12.0); Monocytes % 3.6 % (1.7-12.7); NRBC # 0.11 10*3/uL; Neutrophils % 86.1 % (38.7-73.9); Platelet Count 303 T/CUMM (130-400); Red Blood Count 3.14 MC/CUMM (3.8-5.5); Red Cell Distribution Width 14.6 % (9.3-17.3); White Blood Count 9.6 T/CUMM (4-12)
[2020-05-12] MEDS: SODIUM CHLOR 0.9% KCL 20 MEQ 20 MEQ/1,000 ML BAG IV SCH ×3 (06:26→22:02)
[2020-05-12 06:33] LABS: Albumin 1.8 G/DL (3.4-5.0); Bilirubin,Total 1.9 MG/DL (0.2-1.0); Calcium 7.8 MG/DL (8.5-10.1); Total Protein 6.1 G/DL (6.4-8.3)
[2020-05-12] MEDS: MULTIVITAMIN (CENTRUM) TABLET PO SCH (09:15)
[2020-05-12] MEDS: MENTHOL/ZINC OXIDE OINT 71 GM JAR TOP SCH ×2 (09:15→22:02)
[2020-05-12] MEDS: INSULIN LISPRO 100 UNIT/ML SUBCUT SCH ×4 (09:15→22:02)
[2020-05-12] MEDS ORDERED: METOPROLOL TARTRATE 25 MG TABLET PO SCH ×2 (13:56→16:15)
[2020-05-12] MEDS ORDERED: predniSONE 20 MG TABLET PO SCH (15:30)
[2020-05-12] MEDS: AMOXICILLIN/CLAV 500 MG TABLET PO SCH (16:51)
[2020-05-12] MEDS: DILTIAZEM CD 120 MG CAPSULE PO SCH (16:51)
[2020-05-12] MEDS: ASPIRIN EC 81 MG TABLET PO SCH (16:51)
[2020-05-12] MEDS: ASCORBIC ACID 500 MG TABLET PO SCH (21:50)
[2020-05-13] MEDS: ALBUTEROL INHALER 18 GM INH SCH ×6 (00:28→23:15)
[2020-05-13] MEDS: SODIUM CHLOR 0.9% KCL 20 MEQ 20 MEQ/1,000 ML BAG IV SCH ×2 (00:28→02:41)
[2020-05-13] MEDS: HEPARIN 5,000 UNIT/1 ML VIAL SUBCUT SCH ×3 (00:34→16:43)
[2020-05-13] MEDS: AMOXICILLIN/CLAV 500 MG TABLET PO SCH ×2 (02:41→14:37)
[2020-05-13 05:03] LABS: Basophils % 0.3 % (0.0-0.8); Hematocrit 31.3 VOL% (35.7-47.0); Hemoglobin 9.8 GM/DL (12.0-16.0); Immature Granulocytes % 4.8 %; Immature Granulocytes Absolute 0.42 #; Lymphocytes # 0.8 10*3/uL (1.4-4.0); Mean Corpuscular HGB Conc 31.3 GM/DL (32-36); Mean Platelet Volume 10.6 FL (9.6-12.0); Monocytes % 7.4 % (1.7-12.7); NRBC # 0.46 10*3/uL; Neutrophils % 78.5 % (38.7-73.9); Platelet Count 405 T/CUMM (130-400); Red Blood Count 3.33 MC/CUMM (3.8-5.5); Red Cell Distribution Width 14.7 % (9.3-17.3); White Blood Count 8.7 T/CUMM (4-12)
[2020-05-13 05:23] LABS: Albumin 1.9 G/DL (3.4-5.0); Bilirubin,Total 1.3 MG/DL (0.2-1.0); Calcium 7.9 MG/DL (8.5-10.1); Osmolality,Calculated 288.4 MOS/KG (273-304); Total Protein 6.4 G/DL (6.4-8.3)
[2020-05-13] MEDS ORDERED: SODIUM CHLORIDE 0.9% 1,000 ML IV SCH (06:00)
[2020-05-13] MEDS: INSULIN LISPRO 100 UNIT/ML SUBCUT SCH ×4 (08:43→22:00)
[2020-05-13] MEDS ORDERED: FUROSEMIDE 40 MG/4 ML VIAL IV SCH (09:00)
[2020-05-13] MEDS ORDERED: LOSARTAN 50 MG TABLET PO SCH (09:00)
[2020-05-13] MEDS: SODIUM BICARB INJ 50 MEQ in DEXTROSE 5% 1,000 ML IV SCH ×3 (09:15→22:40)
[2020-05-13] MEDS: ASPIRIN EC 81 MG TABLET PO SCH ×2 (09:31→11:23)
[2020-05-13] MEDS: DILTIAZEM CD 120 MG CAPSULE PO SCH ×2 (09:31→11:23)
[2020-05-13] MEDS: MULTIVITAMIN (CENTRUM) TABLET PO SCH ×2 (09:31→11:23)
[2020-05-13] MEDS: MENTHOL/ZINC OXIDE OINT 71 GM JAR TOP SCH ×2 (09:31→21:59)
[2020-05-13] MEDS: METOPROLOL TARTRATE 25 MG TABLET PO SCH ×3 (09:33→22:02)
[2020-05-13] MEDS: ATORVASTATIN 20 MG TABLET PO SCH ×2 (09:33→11:23)
[2020-05-13] MEDS: ASCORBIC ACID 500 MG TABLET PO SCH ×3 (09:33→22:02)
[2020-05-13] MEDS: methylPREDNISolone SOD SUC 40 MG/1 ML VIAL IV SCH ×2 (09:53→16:25)
[2020-05-13 11:32] LABS: ABG Base Excess -13.6 MMOL/L (-2.5-2.5); ABG HCO3 13.9 MMOL/L (20-26); ABG Oxygen Saturation 94.6 % (95-100); ABG PCO2 28.6 MM HG (35-48); ABG PH 7.252 (7.35-7.45); ABG PO2 92.2 MM HG (80-95); ABG TCO2 11.7 MMOL/L (23-27); Pt O2 Delivery Device BIPAP
[2020-05-13] MEDS: MORPHINE 4 MG/1 ML VIAL IV PRN ×2 (12:25→22:36)
[2020-05-13] MEDS ORDERED: SODIUM BICARBONATE 50 MEQ/50 ML VIAL IV ONE (12:36)
[2020-05-13 13:36] LABS: Osmolality,Calculated 288.5 MOS/KG (273-304)
[2020-05-13] MEDS ORDERED: SODIUM POLYSTYRENE SULFATE 15 GM/60 ML BOTTLE PO ONE (16:24)
[2020-05-14] MEDS ORDERED: SODIUM POLYSTYRENE SULFATE 15 GM/60 ML BOTTLE PO ONE ×2 (00:45→08:10)
[2020-05-14] MEDS: methylPREDNISolone SOD SUC 40 MG/1 ML VIAL IV SCH ×3 (01:13→17:22)
[2020-05-14] MEDS: HEPARIN 5,000 UNIT/1 ML VIAL SUBCUT SCH ×3 (01:35→17:22)
[2020-05-14] MEDS: AMOXICILLIN/CLAV 500 MG TABLET PO SCH (03:10)
[2020-05-14] MEDS ORDERED: ACETAMINOPHEN 325 MG TABLET PO PRN (03:29)
[2020-05-14] MEDS: ALBUTEROL INHALER 18 GM INH SCH ×6 (04:24→22:59)
[2020-05-14 05:23] LABS: Basophils # 0.1 10*3/uL (0.0-0.2); Basophils % 0.5 % (0.0-0.8); Eosinophils % 0.1 % (0.00-10.9); Hematocrit 32.7 VOL% (35.7-47.0); Immature Granulocytes % 5.4 %; Immature Granulocytes Absolute 0.61 #; Lymphocytes # 0.8 10*3/uL (1.4-4.0); Mean Corpuscular HGB Conc 30.6 GM/DL (32-36); Mean Corpuscular Volume 96.7 FL (87-102); Mean Platelet Volume 11.2 FL (9.6-12.0); Monocytes % 7.4 % (1.7-12.7); NRBC # 1.16 10*3/uL; Neutrophils % 79.6 % (38.7-73.9); Platelet Count 389 T/CUMM (130-400); Red Blood Count 3.38 MC/CUMM (3.8-5.5); White Blood Count 11.4 T/CUMM (4-12)
[2020-05-14 05:47] LABS: Band Neutrophils 1 % (0-10); Calcium 7.4 MG/DL (8.5-10.1); Lymphocytes 7 % (20-55); Nucleated Red Blood Cells 10 (0-5); Segmented Neutrophils 89 % (50-85); Total Cells Counted 100
[2020-05-14 05:48] LABS: Hypochromasia 1+; Microcytosis 1+; Ovalocytes Slight; Platelet Estimate Adequate
[2020-05-14] MEDS ORDERED: INSULIN REGULAR 10 UNIT, CALCIUM GLUCONATE 1,000 MG in DEXTROSE 10% 250 ML IV ONE (08:11)
[2020-05-14] MEDS ORDERED: SODIUM CHLORIDE 0.9% 500 ML IV ONE (08:14)
[2020-05-14] MEDS: ATORVASTATIN 20 MG TABLET PO SCH (08:26)
[2020-05-14] MEDS: MULTIVITAMIN (CENTRUM) TABLET PO SCH (08:26)
[2020-05-14] MEDS: ASCORBIC ACID 500 MG TABLET PO SCH ×2 (08:26→22:58)
[2020-05-14] MEDS: METOPROLOL TARTRATE 25 MG TABLET PO SCH ×2 (08:26→22:58)
[2020-05-14] MEDS: ASPIRIN EC 81 MG TABLET PO SCH (08:26)
[2020-05-14] MEDS ORDERED: PIPERACILLIN/TAZOBACTAM 2,250 MG in SODIUM CHLORIDE 0.9% 100 ML IV SCH (08:30)
[2020-05-14] MEDS: INSULIN LISPRO 100 UNIT/ML SUBCUT SCH ×4 (08:32→21:42)
[2020-05-14] MEDS: MENTHOL/ZINC OXIDE OINT 71 GM JAR TOP SCH ×2 (09:26→22:59)
[2020-05-14 09:32] LABS: ABG Base Excess -6.9 MMOL/L (-2.5-2.5); ABG HCO3 18.8 MMOL/L (20-26); ABG Oxygen Saturation 98.2 % (95-100); ABG PCO2 33.3 MM HG (35-48); ABG PH 7.343 (7.35-7.45); ABG TCO2 16.7 MMOL/L (23-27)
[2020-05-14] MEDS: PIPERACILLIN/TAZOBACTAM 3,375 MG in SODIUM CHLORIDE 0.9% 100 ML IV SCH ×2 (09:50→22:59)
[2020-05-14] MEDS ORDERED: SKIN HEALING OINT (AQUAPHOR) 50 GM TUBE TOP PRN (10:17)
[2020-05-14 11:24] LABS: Calcium 7.5 MG/DL (8.5-10.1); Osmolality,Calculated 321.8 MOS/KG (273-304)
[2020-05-14] MEDS: SODIUM CHLORIDE 0.9% 1,000 ML IV SCH (11:35)
[2020-05-14 13:12] LABS: Bacteria,Urine Many /HPF (Few); Bilirubin,Urine Negative (Negative); Blood, Urine Large mg/dL (Negative); Glucose,Urine (UA) 50 mg/dL (Negative); Hyaline Casts,Urine 25 /LPF (0-3); Ketones,Urine 5 mg/dL (Negative); Nitrite,Urine Negative (Negative); Protein,Urine 100 MG/DL; RBC,Urine 357 /HPF (0-4); Urine Appearance CLOUDY (Clear); Urine Color Yellow (Yellow); Urine Specific Gravity 1.013 (1.001-1.035); Urine Urobilinogen < 2.0 EU/DL (0.2-1.0); WBC,Urine 4021 /HPF (0-6)
[2020-05-14 13:13] LABS: Hepatitis B Core IgM Quant 0.19 Index; Hepatitis B Surface Ag Quant < 0.10 Index; Hepatitis B Surface Ag Result Negative (Negative); Hepatitis C Virus Ab Quant 0.57 Index; Hepatitis C Virus Ab Result Negative (Negative)
[2020-05-14] MEDS: SODIUM BICARB INJ 50 MEQ in DEXTROSE 5% 1,000 ML IV SCH (22:59)
[2020-05-15] MEDS: MORPHINE 4 MG/1 ML VIAL IV PRN ×5 (01:58→16:06)
[2020-05-15] MEDS: SODIUM CHLORIDE 0.9% 1,000 ML IV SCH (02:20)
[2020-05-15] MEDS: LORazepam 2 MG/1 ML VIAL IV PRN ×2 (03:42→09:52)
[2020-05-15 16:04] VITALS: BP 91/41
== END 2020-05-15 22:50 | disposition expired | DRG 177 ==
LOC: EDUNIT# → EDBD → N.EDINP 14:21 → N.ED 14:21 → SUATTDRO 16:04 → N.2E 19:33 → SUATTDRO 05-07 14:26
PROVIDERS: ADMIT Internal Medicine Geriatric Medicine; ATTEND Internal Medicine